=== PATIENT | female | born 1985 | race Caucasian/White ===

== ENCOUNTER 2020-04-17 15:03 | Emergency (ER) | payer MEDICAID ==
[2020-04-17 15:10] VITALS: BP 150/90
--- NOTE | 2020-04-17 15:38 | XRAY Report ---
PROCEDURE: Wrist 3 View LT INDICATIONS: wrist pain TECHNIQUE: 3 views of the wrist were acquired. COMPARISON: None. FINDINGS: Bones: No acute fractures or dislocations. No suspicious bony lesions. Soft tissues: No suspicious soft tissue calcifications. IMPRESSION: No acute osseous abnormality. If there is clinical concern or persistent symptoms, further evaluation with repeat radiographs or advanced imaging (e.g. CT, MRI) may be obtained for further evaluation. Reviewed by: Dennis Amado MD on 04/17/2020 3:37 PM [facility] Approved by: Dennis Amado MD on 04/17/2020 3:37 PM [facility] Station ID: [id number]
--- NOTE | 2020-04-17 16:46 | ED Physician Documentation ---
History of Present Illness - Stated complaint Stated Complaint: LT WRIST/ARM PX - Chief complaint Chief Complaint: Ext Problem - Additonal information Additional information: 34-year-old female presents the emergency department for evaluation of 3 weeks left wrist pain. She noted a mild swelling without erythema on the ulnar side about 3 weeks ago. She had no history of trauma. Review of Systems Constitutional: reports: Reviewed and negative Eyes: reports: Reviewed and negative Ears: reports: Reviewed and negative Cardiac: reports: Reviewed and negative Respiratory: reports: Reviewed and negative GI: reports: Reviewed and negative : reports: Reviewed and negative Musculoskeletal: reports: Joint pain (left wrist) PD PAST MEDICAL HISTORY - Past Medical History Past Medical History: No - Allergies Allergies/Adverse Reactions: Allergies Allergy/AdvReac Type Severity Reaction Status Date / Time No Known Drug Allergies Allergy Verified 04/17/20 15:07 - Social History Does the pt smoke?: No Smoking Status: Never smoker PD ED PE EXPANDED - Extremities Extremities: Left wrist (1 cm area of swelling without erythema but mild fluctuance noted palmar side of the wrist near ulna.) Results - Vitals Vitals: Vital Signs - 24 hr 04/17/20 15:07 Temperature 36.5 C Heart Rate 92 Respiratory 16 Rate Blood Pressure 150/90 H O2 Saturation 98 Oxygen O2 Source Room air - Rads (name of study) xray wrist left Radiology: Final report received (No fracture or dislocation.) PD MEDICAL DECISION MAKING - ED course Complexity details: reviewed results, re-evaluated patient, considered differential, d/w patient ED course: 34-year-old female presents emergency department for evaluation of 3 weeks left wrist pain. On exam she has a palpable fluid collection that is most suggestive of a ganglion cyst. However given the small size will defer drainage at this time. I have given the patient a wrist splint that I feel will help with pain in the long-term as minimizing movement may improve pain. We will also make a referral to orthopedics for follow-up. Findings not suggestive of abscess formation or cellulitis. Emergent return precautions discussed. Departure - Departure Disposition: 01 Home, Self Care Clinical Impression: Ganglion cyst of volar aspect of left wrist Condition: Stable Record reviewed to determine appropriate education?: Yes Instructions: ED Cyst Ganglion Follow-Up: [facility] [Provider Group] Comments: Vivi you have a ganglion cyst in your left wrist. Most of these will resolve without needing to be aspirated or drained. Minimizing movement of the wrist should help in the long-term. Please wear the wrist brace when out of bed. I do recommend gentle compression with an Usama bandage as well. I also recommend that you take ibuprofen 600 mg with food 4 times a day for pain. I have referred you to orthopedics for follow-up. Return to the emergency department if you have redness or fevers or concerns of infection in this cyst.
== END 2020-04-17 16:55 | disposition home or self-care (01) ==
LOC: ED 15:03
DX: M67.432 Ganglion, left wrist (principal)
CPT/HCPCS: 99281; 99283

== ENCOUNTER 2020-09-14 16:19 | Outpatient (CLI) | payer MEDICAID | END 2020-09-14 16:20 | disposition critical access hospital (66) | LOC: EMS 16:19 | DX: R50.9 Fever, unspecified (principal); R11.10 Vomiting, unspecified | CPT/HCPCS: A0425; A0429; A0999 ==

== ENCOUNTER 2020-09-14 16:43 | Inpatient (IN) | payer MEDICAID ==
[2020-09-14] MEDS ORDERED: KETOROLAC 15 MG/ML VIAL IM STA (18:37)
[2020-09-14] MEDS ORDERED: SODIUM CHLORIDE 0.9% 1,000 ML IV STA (18:37)
[2020-09-14] MEDS ORDERED: DEXAMETHASONE 10 MG/ML VIAL IVP STA (18:37)
[2020-09-14 18:55] LABS: EOSINOPHILS % (AUTO) 0.6 %; HCT - HEMATOCRIT 39.9 % (37.0-47.0); HGB - HEMOGLOBIN 13.1 g/dL (12.0-16.0); LYMPHOCYTES # (AUTO) 1.1 10^3/uL (1.5-3.5); LYMPHOCYTES % (AUTO) 29.7 %; MEAN CORPUSCULAR HEMOGLOBIN 28.7 pg (27.0-31.0); MEAN CORPUSCULAR HGB CONC 32.8 g/dL (32.0-36.0); MEAN CORPUSCULAR VOLUME 87.3 fL (81.0-99.0); MEAN PLATELET VOLUME 9.5 fL (7.9-10.8); MONOCYTES # (AUTO) 0.2 10^3/uL (0.0-1.0); MONOCYTES % (AUTO) 5.1 %; NEUTROPHILS # (AUTO) 2.3 10^3/uL (1.5-6.6); NEUTROPHILS % (AUTO) 64.3 %; PLT - PLATELET COUNT 161 10^3/uL (130-450); RED BLOOD COUNT 4.57 10^6/uL (4.20-5.40); RED CELL DISTRIBUTION WIDTH 13.9 % (12.0-15.0); WHITE BLOOD COUNT 3.5 x10^3/uL (4.8-10.8)
[2020-09-14 19:00] LABS: CALCIUM 8.5 mg/dL (8.5-10.3); CREATININE 0.9 mg/dL (0.4-1.0); POTASSIUM 3.8 mmol/L (3.5-5.0)
--- NOTE | 2020-09-14 20:25 | XRAY Report ---
PROCEDURE: Chest 1 View X-Ray INDICATIONS: dyspnea TECHNIQUE: One view of the chest was acquired. COMPARISON: None FINDINGS: Surgical changes and devices: None. Lungs and pleura: No pleural effusions or pneumothorax. Moderate right mid lung airspace opacity. Mediastinum: Mediastinal contours appear normal. Heart size is normal. Bones and chest wall: No suspicious bony lesions. Overlying soft tissues appear unremarkable. IMPRESSION: Right lung pneumonia. Follow-up PA and lateral chest x-rays or chest CT is recommended to ensure reso lution, and to exclude underlying neoplasm. Reviewed by: Isaak Bautista MD on 09/14/2020 8:23 PM PDT Approved by: Isaak Bautista MD on 09/14/2020 8:23 PM PDT Station ID: [id number]
--- NOTE | 2020-09-14 20:31 | ED Physician Documentation ---
PD HPI DYSPNEA - Stated complaint Stated Complaint: SOA C+ - Chief complaint Chief Complaint: Resp - History obtained from History obtained from: Patient, EMS - History of Present Illness Timing - onset: How many weeks ago (1) Timing - details: Gradual onset Pain level now: 4 (generalized myalgias) Improved by: O2, Rest Worsened by: Exertion Associated symptoms: Fever, Cough, Diaphoresis. No: Hemoptysis, Wheezing, Chest pain / discomfort, Bilateral edema, Unilateral edema Similar symptoms before: Diagnosis (COVID) - Additional information Additional information: BIBA. Patient is not COVID vaccinated. She developed generalized headache and generalized malaise 1 week ago and this led to outpatient COVID testing which returned (+). She developed fevers and dyspnea 4 days ago with gradually progressive dyspnea since yesterday and highest fever was this evening Tmax over 102 at home. She has no appetite with correlative decreased PO intake over past few days. EMS found patient to have pulse ox upper 80s on room air. Review of Systems Constitutional: reports: Fever, Myalgias, Fatigue, Sweats Eyes: reports: Reviewed and negative Ears: reports: Reviewed and negative Nose: reports: Reviewed and negative Throat: reports: Reviewed and negative Cardiac: reports: Reviewed and negative Respiratory: reports: Dyspnea, Cough. denies: Hemoptysis, Wheezing GI: denies: Abdominal Pain, Nausea, Vomiting, Constipation, Diarrhea : denies: Dysuria, Frequency Skin: reports: Reviewed and negative Musculoskeletal: denies: Extremity swelling Neurologic: reports: Generalized weakness, Headache. denies: Focal weakness, Numbness, Confused, Altered mental status PD PAST MEDICAL HISTORY - Past Medical History Past Medical History: No - Past Surgical History Past Surgical History: No - Allergies Allergies/Adverse Reactions: Allergies Allergy/AdvReac Type Severity Reaction Status Date / Time No Known Drug Allergies Allergy Verified 04/17/20 15:07 - Social History Does the pt smoke?: No Smoking Status: Never smoker Does the pt drink ETOH?: No Does the pt have substance abuse?: No - Immunizations Immunizations are current?: Yes - POLST Patient has POLST: No PD ED PE NORMAL - Vitals Vital signs reviewed: Yes - General General: Alert and oriented X 3, Other (diaphoretic) - HEENT HEENT: PERRL, EOMI, Other (tacky/pasty mucous membranes) - Neck Neck: Supple, no meningeal sign - Cardiac Cardiac: No murmur - Respiratory Respiratory: No respiratory distress - Abdomen Abdomen: Soft, Non tender - Back Back: No CVA TTP - Derm Derm: Normal color, No rash, Other (diaphoretic) - Extremities Extremities: No edema - Neuro Neuro: Alert and oriented X 3 PD ED PE EXPANDED - Cardiac Cardiac: Tachy - Respiratory Respiratory: Rhonchi (right mid/lower lung suazo) Results - Vitals Vitals: Vital Signs - 24 hr 09/14/20 09/14/20 09/14/20 17:23 19:05 21:00 Temperature 39.3 C H Heart Rate 108 H 108 H 100 Respiratory 30 H 22 24 Rate Blood Pressure 121/78 141/84 H 129/73 O2 Saturation 95 92 93 Oxygen O2 Source Nasal cannula Oxygen Flow Rate 4 - Labs Labs: Laboratory Tests 09/14/20 09/14/20 09/14/20 18:47 18:47 20:54 WBC 3.5 L RBC 4.57 Hgb 13.1 Hct 39.9 MCV 87.3 MCH 28.7 MCHC 32.8 RDW 13.9 Plt Count 161 MPV 9.5 Neut # (Auto) 2.3 Lymph # (Auto) 1.1 L [place] # (Auto) 0.2 Eos # (Auto) 0.0 Baso # (Auto) 0.0 Absolute Nucleated RBC 0.00 Nucleated RBC % 0.0 Sodium 134 L Potassium 3.8 Chloride 96 L Carbon Dioxide 24 Anion Gap 14.0 H BUN 10 Creatinine 0.9 Estimated GFR (MDRD) 71 L Glucose 150 H Lactic Acid 0.8 Calcium 8.5 - Rads (name of study) chest xray Radiology: Prelim report reviewed, See rad report PD MEDICAL DECISION MAKING - ED course Complexity details: reviewed results, re-evaluated patient, considered differential, d/w patient ED course: BIBA. Recent COVID positive (outpatient) testing, presents due to gradually worsening symptoms/signs (increasingly higher fevers, increasing dyspnea, poor appetite). She is hypoxic on room air, corrects to lower/mid 90s with 4 liters [place] oxygen. right sided infiltrate on CXR. D/W Dr. Jhaveri, will admit for COVID pneuomnia, hypoxia. Given antibiotics in ED to cover possible superimposed bacterial process. Departure - Departure Disposition: 66 [facility] DC/Xfer Clinical Impression: Pneumonia due to COVID-19 virus, Hypoxia Condition: Fair Discharge Date/Time: 09/14/20 22:39
[2020-09-14] MEDS ORDERED: cefTRIAXone 1 GM in SODIUM CHLORIDE 0.9% MINIBAG 100 ML IV STA (21:04)
[2020-09-14] MEDS ORDERED: AZITHROMYCIN INJ 500 MG in SODIUM CHLORIDE 0.9% 250 ML IV STA (21:04)
[2020-09-14] MEDS ORDERED: cefTRIAXone 1 GM VIAL ONE (21:16)
--- NOTE | 2020-09-14 21:40 | HISTORY & PHYSICAL EXAMINATION ---
Chief Complaint - Chief Complaint Chief Complaint: Shortness of breath. History of Present Illness - Admitted From Admitted From:: Home - History Obtained From Records Reviewed: Yes History obtained from: Patient, ER Physician, EMR - History of Present Illness HPI Comment/Other: This is a 34-year-old female with no significant past medical history who presents today complaining of worsening shortness of breath and fever. She states she started to have fevers on 10 September and she had associated headache, malaise, chills, diaphoresis. She was tested for Covid the following day and this came back positive. She states over the past 2 days she has felt short of breath and continues to have daily fevers. She has been taking Tylenol with minimal relief. She has had a nonproductive cough and occasional chest pain with this cough. She reports a bit of nasal congestion but no sore throat. She has had loss of smell and poor appetite but has been drinking plenty of fluids. She has no abdominal pain but has had some nausea and vomiting. She also reports diarrhea that began yesterday. She has only been having 1-2 bowel movements a day but they have been liquid without formed stool. She also states that she passed out twice over the past couple days. The first time was when she was vomiting and the second time was when she was having diarrhea. She is not sure if she hit her head or not. She is not vaccinated for COVID-19. She has a remote smoking history but quit over 9 years ago. In the emergency department, she was found to be febrile with temperature of 39.3 C. Her heart rate is 108. Blood pressure was 121/78. She was tachypneic with respiratory of 30. She was saturating 95% on 4 L of oxygen via nasal cannula. Labs revealed leukopenia with a normal lactic acid. Respiratory PCR panel was positive for SARSCoV2. Chest x-ray revealed right lower lobe infiltrate. Given the above findings, medicine was consulted for admission. History - Past Medical History Respiratory: reports: None Neuro: reports: None Endocrine/Autoimmune: reports: None MRSA Hx?: No - Past Surgical History General: reports: Cholecystectomy - Family & Social History Family History Comment/Other: She reports her mother from complications of diabetes. Her 2 brothers were recently diagnosed with diabetes. Living arrangement: At home Living Situation: With friend(s) Social History Notes: She lives at home with her close friend and her family. There are 9 people in the household. She moved to [facility] 1 year ago after previously living in [place] and in [place] prior to that. She smoked about 1/2 pack a day for 10 years on and off but quit in 2011. She rarely drinks alcohol. - POLST Patient has POLST: No Meds/Allgy - Allergies Allergies/Adverse Reactions: Allergies Allergy/AdvReac Type Severity Reaction Status Date / Time No Known Drug Allergies Allergy Verified 04/17/20 15:07 Review of Systems - Constitutional Constitutional: reports: Fatigue, Fever, Chills, Malaise, Weakness, Poor appetite, Night sweats - Ears, Nose & Throat Ears, Nose & Throat: reports: Nasal congestion. denies: Nasal discharge, Sore throat - Cardiovascular Cariovascular: reports: Chest pain (With cough), Syncope, Exertional dyspnea, Decr. exercise tolerance. denies: Edema, Lightheadedness - Respiratory Respiratory: reports: Cough, SOB at rest, SOB with exertion. denies: Sputum production - Gastrointestinal Gastrointestinal: reports: Diarrhea, Change in bowel habits, Nausea, Vomiting. denies: Abdominal pain, Constipation - Genitourinary Genitourinary: denies: Dysuria, Frequency, Urgency, Hematuria - Musculoskeletal Musculoskeletal: denies: Muscle pain, Limited range of motion - Integumentary Integumentary: denies: Rash - Neurological Neurological: reports: General weakness, Headache. denies: Focal weakness, Dizziness - All Other Systems All Other Systems: reports: Reviewed and negative Prior Level of Functionality: She is independent with her ADLs. Exam - Vital Signs Reviewed Vital Signs: Yes Vital Signs: Vital Signs x48h Temp Pulse Resp BP Pulse Ox 09/14/20 21:00 100 24 129/73 93 09/14/20 19:05 108 H 22 141/84 H 92 09/14/20 17:23 39.3 C H 108 H 30 H 121/78 95 - Physical Exam General Appearance: positive: Alert, Mild distress Eyes Bilateral: positive: Normal inspection, Conjunctivae nml ENT: positive: ENT inspection nml, Other (Nasal cannula in place.) Neck: positive: Nml inspection Respiratory: positive: No respiratory distress, Other (Diminished bilaterally.). negative: Wheezes, Rales Cardiovascular: positive: No murmur, Tachycardia. negative: Irregularly irregular, Bradycardia, Systolic murmur Abdomen: positive: Non-tender, Nml bowel sounds, No distention. negative: Tenderness, Guarding, Rebound Skin: positive: Warm, Dry Extremities: positive: No pedal edema Neurologic/Psychiatric: positive: Motor nml. negative: Disoriented to person, Disoriented to place Sepsis Event Note (H) - Evaluation Current Stage of Sepsis: Sepsis Possible source of Sepsis: positive: Pulmonary - Sepsis Criteria Sepsis Criteria: Recorded Temperature greater than 38.3C or Less than 36C, Recorded Heart Rate greater than 90 bpm, Recorded Respiratory Rate greater than 20, Respiratory: Increasing oxygen requirements, WBC count greater than 12,000 or less than 4000 Conclusion/Plan - Problem List (1) Acute respiratory failure with hypoxia Conclusion/Plan: This is secondary to COVID-19 pneumonia. She is requiring 4 L to maintain oxygen saturation of 94%. Her x-ray reveals a right lower lobe infiltrate. We will start her on Decadron and remdesivir. We will also place her on antibiotics for community-acquired pneumonia as her chest x-ray reveals a right lower lobe infiltrate which could potentially reflect a bacterial component to the infection. Monitor respiratory status and continue supplemental oxygen for goal saturation greater than 92%. (2) Sepsis Conclusion/Plan: She does meet sepsis criteria given her fever, leukopenia, tachycardia. This is likely due to the COVID-19 pneumonia although we cannot rule out a component of community-acquired bacterial pneumonia. Her lactic acid is normal. Blood cultures have been ordered and are pending. Continue IV antibiotics as mentioned below for pneumonia. Follow-up blood cultures. (3) Pneumonia due to COVID-19 virus Conclusion/Plan: This is the cause of her acute respiratory failure with hypoxia. She tested positive on September 09 and she is not vaccinated. She is now requiring 4 L of oxygen and her chest x-ray reveals a right lower lobe infiltrate. She received 10 mg of IV Decadron in the emergency department. We will continue her on 6 mg IV daily. We will start her on remdesivir tomorrow when pharmacy is available. We will also start her empirically on ceftriaxone and azithromycin IV given there could be a component of bacterial infection. Contact precautions. (4) Syncope Conclusion/Plan: This appears to be either vasovagal or due to dehydration based off of history. We will check orthostatics and obtain an EKG. She is also on telemetry. We will consider an echocardiogram although low suspicion for cardiac etiology at this time. - Lab Results Lab results reviewed: Yes Fish Bones: 09/14/20 18:47 09/14/20 18:47 - Diagnostic Imaging Results Diagnostic Imaging Results: positive: Final report reviewed Core Measures - Anticipated LOS I expect patient to be DC'd or transferred within 96 hours.: Yes - Issues Hospital Issues and Management Plan: 34-year-old female diagnosed with Covid a few days ago presents with dyspnea found to have a right lower lobe infiltrate and is hypoxic. We will admit for IV antibiotics, remdesivir, Decadron. - DVT/VTE - Prophylaxis VTE/DVT Device ordered at admit?: Yes VTE/DVT Prophylaxis med ordered at admit?: Yes
[2020-09-14 22:45] LABS: B. PARAPERTUSSIS- RESP PCR PAN NOT DETECTED; B. PERTUSSIS- RESP PCR PANEL NOT DETECTED; C. PNEUMONIAE- RESP PCR PANEL NOT DETECTED; CORONAVIRUS 229E-RESP PCR NOT DETECTED; CORONAVIRUS HKU1-RESP PCR NOT DETECTED; CORONAVIRUS NL63-RESP PCR NOT DETECTED; CORONAVIRUS OC43-RESP PCR NOT DETECTED; HUMAN METAPNEUMOVIRUS NOT DETECTED; INFLUENZA A- RESP PCR PANEL NOT DETECTED; INFLUENZA B - RESP PCR PANEL NOT DETECTED; M. PNEUMONIAE- RESP PCR PANEL NOT DETECTED; PARAINFLUENZA VIRUS 1 NOT DETECTED; PARAINFLUENZA VIRUS 2 NOT DETECTED; PARAINFLUENZA VIRUS 3 NOT DETECTED; PARAINFLUENZA VIRUS 4 NOT DETECTED; RHINOVIRUS/ENTEROVIRUS NOT DETECTED; RSV- RESP PCR PANEL NOT DETECTED; SARS-CoV-2 -RESP PCR PANEL DETECTED
[2020-09-14] MEDS: LACTATED RINGERS 1,000 ML IV SCH (22:56)
[2020-09-15] MEDS: KETOROLAC 15 MG/ML VIAL IVP PRN ×2 (01:11→12:47)
[2020-09-15] MEDS: SODIUM CHLORIDE FLUSH 0.9% 10 ML SYRINGE IVP SCH ×3 (02:29→17:42)
[2020-09-15] MEDS: BENZOCAINE/MENTHOL LOZENGE MM PRN (03:49)
[2020-09-15 04:17] LABS: BILIRUBIN,URINE NEGATIVE (NEGATIVE); GLUCOSE, URINE (UA) 500 mg/dL (NEGATIVE); KETONES,URINE (UA) >=80 mg/dL (NEGATIVE); LEUKOCYTE ESTERASE, URINE NEGATIVE (NEGATIVE); NITRITE,URINE NEGATIVE (NEGATIVE); OCCULT BLOOD,URINE NEGATIVE (NEGATIVE); PH,URINE 5.5 PH (5.0-7.5); PROTEIN,URINE NEGATIVE (NEGATIVE); UROBILINOGEN,URINE 0.2 (NORMAL) E.U./dL (NORMAL)
[2020-09-15 04:18] LABS: CLARITY,URINE CLEAR (CLEAR)
[2020-09-15 04:22] LABS: HCG UR QUAL NEGATIVE
[2020-09-15 06:07] LABS: HCT - HEMATOCRIT 36.8 % (37.0-47.0); HGB - HEMOGLOBIN 12.4 g/dL (12.0-16.0); LYMPHOCYTES # (AUTO) 0.9 10^3/uL (1.5-3.5); MEAN CORPUSCULAR HEMOGLOBIN 29.5 pg (27.0-31.0); MEAN CORPUSCULAR HGB CONC 33.7 g/dL (32.0-36.0); MEAN CORPUSCULAR VOLUME 87.4 fL (81.0-99.0); MEAN PLATELET VOLUME 9.6 fL (7.9-10.8); MONOCYTES # (AUTO) 0.2 10^3/uL (0.0-1.0); MONOCYTES % (AUTO) 4.3 %; NEUTROPHILS # (AUTO) 2.8 10^3/uL (1.5-6.6); NEUTROPHILS % (AUTO) 71.4 %; PLT - PLATELET COUNT 166 10^3/uL (130-450); RED BLOOD COUNT 4.21 10^6/uL (4.20-5.40); RED CELL DISTRIBUTION WIDTH 13.8 % (12.0-15.0); WHITE BLOOD COUNT 3.9 x10^3/uL (4.8-10.8)
[2020-09-15 06:22] LABS: ALBUMIN 3.6 g/dL (3.2-5.5); BILIRUBIN,DIRECT 0.1 mg/dL (0.1-0.5); BILIRUBIN,TOTAL 0.3 mg/dL (0.2-1.0); CREATININE 0.7 mg/dL (0.4-1.0); CRP - C-REACTIVE PROTEIN 2.4 mg/dL (0-1.0); MAGNESIUM 2.1 mg/dL (1.7-2.8); POTASSIUM 3.8 mmol/L (3.5-5.0); TOTAL PROTEIN 6.7 g/dL (6.7-8.2)
[2020-09-15] MEDS ORDERED: REMDESIVIR 100MG VIAL 200 MG in SODIUM CHLORIDE 0.9% 250 ML IV ONE (09:00)
[2020-09-15] MEDS: INSULIN ASPART 300 UNIT/3 ML PEN SUBQ SCH ×7 (09:01→21:43)
[2020-09-15] MEDS: ENOXAPARIN 40 MG/0.4 ML SYRINGE SUBQ SCH (09:02)
[2020-09-15] MEDS: DEXAMETHASONE 10 MG/ML VIAL IVP SCH (09:11)
[2020-09-15] MEDS: SODIUM CHLORIDE FLUSH 0.9% 10 ML SYRINGE IVP PRN ×2 (09:17→12:49)
[2020-09-15] MEDS: LACTATED RINGERS 1,000 ML IV SCH (09:18)
--- NOTE | 2020-09-15 11:42 | PROVIDER PROGRESS NOTE ---
Assessment/Plan - Problem List (1) Acute respiratory failure with hypoxia Assessment/Plan: 09/15 Patient had 92% sats on 4.5 L of oxygen. Patient is sitting in the chair, patient can speak full sentence without acute respiratory distress now. pt is stable now. will continue lovenox, Decadron and remdesivir. continue antibiotics at the same time, add probiotics (2) Sepsis pt has stable BP now. we will continue treat for Covid 19 and possible CAP pneumonia as well. Follow-up blood cultures. (3) Pneumonia due to COVID-19 virus Conclusion/Plan: pt report she did not do Vaccination for COVID-19. her chest x-ray reveals a right lower lobe infiltrate with COVID-19 positive, She required 4.5 oxygen. She has 92% of sats. We will continue treated COVID-19 with Lovenox, Decadron, remdesivir. Contact precautions. (4) Syncope pt has negative for Orthostatic hypotension. This appears to be either vasovagal or due to dehydration based off of history. We will check obtain an EKG. She is also on telemetry. We will consider an echocardiogram although low suspicion for cardiac etiology at this time if she continue to have problem (5)hyperglycemia Patient present hypoglycemia. She report couple years ago she was prediabetic. We will check A1c, continue sliding-scale insulin for patient. We will have diabetic consult for patient. - Current Meds Current Meds: Current Medications Generic Name Dose Route Start Last Admin Trade Name Freq PRN Reason Stop Dose Admin Dexamethasone 6 mg 09/15/20 09:00 09/15/20 09:11 Dexamethasone 10 Mg/Ml Vial IVP 09/24/20 08:59 6 mg DAILY ANDREIA Administration Enoxaparin Sodium 40 mg 09/15/20 09:00 09/15/20 09:02 Enoxaparin 40 Mg/0.4 Ml Syringe SUBQ 40 mg DAILY ANDREIA Administration Lactated Ringer's 1,000 mls @ 100 mls/hr 09/14/20 22:00 09/15/20 10:31 Lr IV 09/15/20 17:59 100 mls/hr .Q10H ANDREIA Infusion Insulin Aspart 1 - 9 unit 09/15/20 08:00 09/15/20 09:01 Insulin Aspart 300 Unit/3 Ml Pen SUBQ 5 unit 0800,1200,1700,2100 ANDREIA Administration Protocol Insulin Aspart 5 unit 09/15/20 08:23 09/15/20 09:01 Insulin Aspart 300 Unit/3 Ml Pen SUBQ 5 unit TIDWM ANDREIA Administration Ketorolac Tromethamine 15 mg 09/14/20 23:49 09/15/20 01:11 Ketorolac 15 Mg/Ml Vial IVP 09/19/20 23:48 15 mg Q6HR PRN Administration HEADACHE Sodium Chloride 10 ml 09/14/20 21:37 09/15/20 09:17 Sodium Chloride Flush 0.9% 10 Ml Syringe IVP 10 ml PRN PRN Administration NEEDED PER PROVIDER ORDERS Sodium Chloride 10 ml 09/15/20 01:00 09/15/20 09:02 Sodium Chloride Flush 0.9% 10 Ml Syringe IVP Not Given 0100,0900,1700 ANDREIA Throat Lozenges 1 lozenge 09/15/20 01:19 09/15/20 03:49 Benzocaine/Menthol Lozenge MM 1 lozenge Q2HR PRN Administration Throat pain - Lab Result Fish Bone Diagrams: 09/15/20 05:54 09/15/20 05:54 - Additional Planning My Orders: My Active Orders 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 Diabetes Outpatient Education MAC [MAC] Routine 09/15/20 08:23 Insulin Aspart [NovoLOG] 5 unit SUBQ TIDWM 09/15/20 08:24 Diabetic Education [RC] ONCE Subjective - Subjective Patient Reports: Feeling Better Objective Vital Signs: Vital Signs - 24 hr 09/14/20 09/14/20 09/14/20 17:23 19:05 21:00 Temperature 39.3 C H Heart Rate 108 H 108 H 100 Heart Rate [ Brachial] Respiratory 30 H 22 24 Rate Blood Pressure 121/78 141/84 H 129/73 Blood Pressure [Left Brachial artery] Blood Pressure [Right Brachial artery] O2 Saturation 95 92 93 09/14/20 09/14/20 09/15/20 21:41 22:46 01:00 Temperature 36.7 C 37.1 C 36.9 C Heart Rate Heart Rate [ 98 88 Brachial] Respiratory 22 22 Rate Blood Pressure Blood Pressure 118/74 [Left Brachial artery] Blood Pressure 102/69 [Right Brachial artery] O2 Saturation 94 91 L 09/15/20 09/15/20 03:58 08:00 Temperature 36.5 C 36.8 C Heart Rate Heart Rate [ 76 70 Brachial] Respiratory 18 18 Rate Blood Pressure Blood Pressure [Left Brachial artery] Blood Pressure 100/60 [Right Brachial artery] O2 Saturation 92 92 Oxygen O2 Source Nasal cannula Oxygen Flow Rate 4 I&O (Last 24 Hrs): Intake and Output Totals x24h 09/13/20 09/14/20 09/15/20 23:59 23:59 23:59 Intake Total 1350 1250.000 Balance 1350 1250.000 General: Alert, Oriented x3, Cooperative, No acute distress HEENT: Atraumatic Neck: Supple Lymphatic: no adenopathy Neuro: Alert, Non Focal, Oriented Times 3 Cardiovascular: Regular rate, Normal S1, Normal S2 Respiratory: Chest non-tender, No respiratory distress Abdomen: Normal bowel sounds, Soft, No tenderness Extremities: Normal pulses - Results Results: Laboratory Results WBC 3.9 x10^3/uL (4.8-10.8) L 09/15/20 05:54 RBC 4.21 10^6/uL (4.20-5.40) 09/15/20 05:54 Hgb 12.4 g/dL (12.0-16.0) 09/15/20 05:54 Hct 36.8 % (37.0-47.0) L 09/15/20 05:54 MCV 87.4 fL (81.0-99.0) 09/15/20 05:54 MCH 29.5 pg (27.0-31.0) 09/15/20 05:54 MCHC 33.7 g/dL (32.0-36.0) 09/15/20 05:54 RDW 13.8 % (12.0-15.0) 09/15/20 05:54 Plt Count 166 10^3/uL (130-450) 09/15/20 05:54 MPV 9.6 fL (7.9-10.8) 09/15/20 05:54 Neut # (Auto) 2.8 10^3/uL (1.5-6.6) 09/15/20 05:54 Lymph # (Auto) 0.9 10^3/uL (1.5-3.5) L 09/15/20 05:54 Mclean # (Auto) 0.2 10^3/uL (0.0-1.0) 09/15/20 05:54 Eos # (Auto) 0.0 10^3/uL (0.0-0.7) 09/15/20 05:54 Baso # (Auto) 0.0 10^3/uL (0.0-0.1) 09/15/20 05:54 Absolute Nucleated RBC 0.00 x10^3/uL 09/15/20 05:54 Nucleated RBC % 0.0 /100WBC 09/15/20 05:54 Sodium 136 mmol/L (135-145) 09/15/20 05:54 Potassium 3.8 mmol/L (3.5-5.0) 09/15/20 05:54 Chloride 104 mmol/L (101-111) 09/15/20 05:54 Carbon Dioxide 24 mmol/L (21-32) 09/15/20 05:54 Anion Gap 8.0 (6-13) 09/15/20 05:54 BUN 15 mg/dL (6-20) 09/15/20 05:54 Creatinine 0.7 mg/dL (0.4-1.0) 09/15/20 05:54 Estimated GFR (MDRD) 95 (>89) 09/15/20 05:54 Glucose 296 mg/dL (70-100) H 09/15/20 05:54 Lactic Acid 0.8 mmol/L (0.5-2.2) 09/14/20 20:54 Calcium 8.0 mg/dL (8.5-10.3) L 09/15/20 05:54 Magnesium 2.1 mg/dL (1.7-2.8) 09/15/20 05:54 Total Bilirubin 0.3 mg/dL (0.2-1.0) 09/15/20 05:54 Direct Bilirubin 0.1 mg/dL (0.1-0.5) 09/15/20 05:54 AST 30 IU/L (10-42) 09/15/20 05:54 ALT 36 IU/L (10-60) 09/15/20 05:54 Alkaline Phosphatase 41 IU/L (42-121) L 09/15/20 05:54 C-Reactive Protein 2.4 mg/dL (0-1.0) H 09/15/20 05:54 Total Protein 6.7 g/dL (6.7-8.2) 09/15/20 05:54 Albumin 3.6 g/dL (3.2-5.5) 09/15/20 05:54 Globulin 3.1 g/dL (2.1-4.2) 09/15/20 05:54 Urine Color YELLOW 09/15/20 03:50 Urine Clarity CLEAR (CLEAR) 09/15/20 03:50 Urine pH 5.5 PH (5.0-7.5) 09/15/20 03:50 Ur Specific [place] 1.025 (1.002-1.030) 09/15/20 03:50 Urine Protein NEGATIVE mg/dL (NEGATIVE) 09/15/20 03:50 Urine Glucose (UA) 500 mg/dL (NEGATIVE) H 09/15/20 03:50 Urine Ketones >=80 mg/dL (NEGATIVE) H 09/15/20 03:50 Urine Occult Blood NEGATIVE (NEGATIVE) 09/15/20 03:50 Urine Nitrite NEGATIVE (NEGATIVE) 09/15/20 03:50 Urine Bilirubin NEGATIVE (NEGATIVE) 09/15/20 03:50 Urine Urobilinogen 0.2 (NORMAL) E.U./dL (NORMAL) 09/15/20 03:50 Ur Leukocyte Esterase NEGATIVE (NEGATIVE) 09/15/20 03:50 Ur Microscopic Review NOT INDICATED 09/15/20 03:50 Urine Culture Comments NOT INDICATED 09/15/20 03:50 Urine HCG, Qual NEGATIVE 09/15/20 03:50 Nasal Adenovirus (PCR) NOT DETECTED 09/14/20 21:50 Nasal B. parapertussis DNA (PCR) NOT DETECTED 09/14/20 21:50 Nasal Coronavir 229E PCR NOT DETECTED 09/14/20 21:50 Nasal Coronavir HKU1 PCR NOT DETECTED 09/14/20 21:50 Nasal Coronavir NL63 PCR NOT DETECTED 09/14/20 21:50 Nasal Coronavir OC43 PCR NOT DETECTED 09/14/20 21:50 Nasal Enterovir/Rhinovir PCR NOT DETECTED 09/14/20 21:50 Nasal Influenza B PCR NOT DETECTED 09/14/20 21:50 Nasal Influenza A PCR NOT DETECTED 09/14/20 21:50 Nasal Parainfluen 1 PCR NOT DETECTED 09/14/20 21:50 Nasal Parainfluen 2 PCR NOT DETECTED 09/14/20 21:50 Nasal Parainfluen 3 PCR NOT DETECTED 09/14/20 21:50 Nasal Parainfluen 4 PCR NOT DETECTED 09/14/20 21:50 Nasal RSV (PCR) NOT DETECTED 09/14/20 21:50 Nasal B.pertussis DNA PCR NOT DETECTED 09/14/20 21:50 Nasal C.pneumoniae (PCR) NOT DETECTED 09/14/20 21:50 Brian Human Metapneumo PCR NOT DETECTED 09/14/20 21:50 Nasal M.pneumoniae (PCR) NOT DETECTED 09/14/20 21:50 Nasal SARS-CoV-2 (PCR) DETECTED A 09/14/20 21:50 Sepsis Event Note (H) - Evaluation Current Stage of Sepsis: Sepsis Possible source of Sepsis: positive: Pulmonary - Sepsis Criteria Sepsis Criteria: Recorded Temperature greater than 38.3C or Less than 36C, Recorded Heart Rate greater than 90 bpm, Recorded Respiratory Rate greater than 20, Respiratory: Increasing oxygen requirements, WBC count greater than 12,000 or less than 4000 ABX Reporting Has patient been on IV antibiotics over the past 48 hours?: Yes Current Medications - Current Medications Current Medications: Active Medications Acetaminophen (Acetaminophen 325 Mg Tablet) 650 mg PO Q4HR PRN PRN Reason: Pain 1 to 4 Dexamethasone (Dexamethasone 10 Mg/Ml Vial) 6 mg IVP DAILY [facility] Stop: 09/24/20 08:59 Last Admin: 09/15/20 09:11 Dose: 6 mg Documented by: Enoxaparin Sodium (Enoxaparin 40 Mg/0.4 Ml Syringe) 40 mg SUBQ DAILY [facility] Last Admin: 09/15/20 09:02 Dose: 40 mg Documented by: Lactated Ringer's (Lr) 1,000 mls @ 100 mls/hr IV .Q10H ANDREIA Stop: 09/15/20 17:59 Last Infusion: 09/15/20 10:31 Dose: 100 mls/hr Documented by: Azithromycin 500 mg/ Sodium (Chloride) 250 mls @ 250 mls/hr IV HS ANDREIA Stop: 09/16/20 21:59 Ceftriaxone Sodium 1 gm/ (Sodium Chloride) 100 mls @ 200 mls/hr IV HS [facility] Stop: 09/18/20 21:29 Remdesivir 100 mg/ Sodium (Chloride) 100 mls @ 200 mls/hr IV DAILY ANDREIA Stop: 09/19/20 09:29 Insulin Aspart (Insulin Aspart 300 Unit/3 Ml Pen) 1 - 9 unit SUBQ 0800,1200,1700,2100 [facility]; Protocol Last Admin: 09/15/20 09:01 Dose: 5 unit Documented by: Insulin Aspart (Insulin Aspart 300 Unit/3 Ml Pen) 5 unit SUBQ TIDWM [facility] Last Admin: 09/15/20 09:01 Dose: 5 unit Documented by: Insulin Glargine (Insulin Glargine 300 Unit/3 Ml Pen) 10 unit SUBQ QPM [facility] Ketorolac Tromethamine (Ketorolac 15 Mg/Ml Vial) 15 mg IVP Q6HR PRN PRN Reason: HEADACHE Stop: 09/19/20 23:48 Last Admin: 09/15/20 01:11 Dose: 15 mg Documented by: Ondansetron HCl (Ondansetron 4 Mg/2 Ml Vial) 4 mg IVP Q6HR PRN PRN Reason: Nausea / Vomiting Saccharomyces Boulardii (Saccharomyces Boulardii 250 Mg Capsule) 250 mg PO BIDWM [facility] Sodium Chloride (Sodium Chloride Flush 0.9% 10 Ml Syringe) 10 ml IVP PRN PRN PRN Reason: NEEDED PER PROVIDER ORDERS Last Admin: 09/15/20 09:17 Dose: 10 ml Documented by: Sodium Chloride (Sodium Chloride Flush 0.9% 10 Ml Syringe) 10 ml IVP 0100,0900,1700 [facility] Last Admin: 09/15/20 09:02 Dose: Not Given Documented by: Throat Lozenges (Benzocaine/Menthol Lozenge) 1 lozenge MM Q2HR PRN PRN Reason: Throat pain Last Admin: 09/15/20 03:49 Dose: 1 lozenge Documented by:
[2020-09-15 14:24] LABS: ESTIMATED AVERAGE GLUCOSE 174 mg/dL (70-100); HEMOGLOBIN A1c% 7.7 % (4.27-6.07)
[2020-09-15] MEDS: ACETAMINOPHEN 325 MG TABLET PO PRN (17:41)
[2020-09-15] MEDS: SACCHAROMYCES BOULARDII 250 MG CAPSULE PO SCH (17:42)
[2020-09-15] MEDS: CALCIUM CARBONATE CHEW 500 MG TABLET PO PRN (20:28)
[2020-09-15] MEDS: ONDANSETRON 4 MG/2 ML VIAL IVP PRN (20:28)
[2020-09-15] MEDS: cefTRIAXone 1 GM in SODIUM CHLORIDE 0.9% MINIBAG 100 ML IV SCH (21:42)
[2020-09-15] MEDS: INSULIN GLARGINE 300 UNIT/3 ML PEN SUBQ SCH (21:43)
[2020-09-15] MEDS: AZITHROMYCIN INJ 500 MG in SODIUM CHLORIDE 0.9% 250 ML IV SCH (22:38)
[2020-09-16] MEDS: KETOROLAC 15 MG/ML VIAL IVP PRN (00:17)
[2020-09-16] MEDS: SODIUM CHLORIDE FLUSH 0.9% 10 ML SYRINGE IVP SCH ×3 (00:18→17:16)
[2020-09-16] MEDS: CALCIUM CARBONATE CHEW 500 MG TABLET PO PRN (00:27)
[2020-09-16] MEDS: BENZOCAINE/MENTHOL LOZENGE MM PRN (00:27)
[2020-09-16] MEDS: ZOLPIDEM 5 MG TABLET PO PRN (00:27)
[2020-09-16 05:39] LABS: BASOPHILS % (AUTO) 0.2 %; EOSINOPHILS % (AUTO) 0.2 %; HGB - HEMOGLOBIN 11.3 g/dL (12.0-16.0); LYMPHOCYTES # (AUTO) 1.2 10^3/uL (1.5-3.5); LYMPHOCYTES % (AUTO) 19.9 %; MEAN CORPUSCULAR HEMOGLOBIN 28.7 pg (27.0-31.0); MEAN CORPUSCULAR HGB CONC 32.3 g/dL (32.0-36.0); MEAN CORPUSCULAR VOLUME 88.8 fL (81.0-99.0); MEAN PLATELET VOLUME 9.8 fL (7.9-10.8); MONOCYTES # (AUTO) 0.3 10^3/uL (0.0-1.0); MONOCYTES % (AUTO) 4.2 %; NEUTROPHILS # (AUTO) 4.7 10^3/uL (1.5-6.6); NEUTROPHILS % (AUTO) 75.2 %; PLT - PLATELET COUNT 181 10^3/uL (130-450); RED BLOOD COUNT 3.94 10^6/uL (4.20-5.40); RED CELL DISTRIBUTION WIDTH 14.2 % (12.0-15.0); WHITE BLOOD COUNT 6.2 x10^3/uL (4.8-10.8)
[2020-09-16 05:50] LABS: ALBUMIN 3.4 g/dL (3.2-5.5); BILIRUBIN,DIRECT 0.1 mg/dL (0.1-0.5); BILIRUBIN,TOTAL 0.5 mg/dL (0.2-1.0); CALCIUM 8.3 mg/dL (8.5-10.3); CREATININE 0.9 mg/dL (0.4-1.0); CRP - C-REACTIVE PROTEIN 1.2 mg/dL (0-1.0); MAGNESIUM 1.9 mg/dL (1.7-2.8); POTASSIUM 3.5 mmol/L (3.5-5.0); TOTAL PROTEIN 6.5 g/dL (6.7-8.2)
[2020-09-16] MEDS: INSULIN ASPART 300 UNIT/3 ML PEN SUBQ SCH ×7 (08:07→21:22)
[2020-09-16] MEDS: DEXAMETHASONE 10 MG/ML VIAL IVP SCH (09:11)
[2020-09-16] MEDS: ENOXAPARIN 40 MG/0.4 ML SYRINGE SUBQ SCH (09:13)
[2020-09-16] MEDS ORDERED: GI COCKTAIL 120 ML BOTTLE PO PRN (09:17)
[2020-09-16] MEDS ORDERED: LORazepam 0.5 MG TABLET PO PRN (09:29)
[2020-09-16] MEDS: ONDANSETRON 4 MG/2 ML VIAL IVP PRN (10:15)
[2020-09-16] MEDS: ACETAMINOPHEN 325 MG TABLET PO PRN (10:15)
[2020-09-16] MEDS: SACCHAROMYCES BOULARDII 250 MG CAPSULE PO SCH ×2 (10:15→17:16)
[2020-09-16] MEDS: PANTOPRAZOLE 40 MG TABLET PO SCH (10:20)
[2020-09-16] MEDS: REMDESIVIR 100MG VIAL 100 MG in SODIUM CHLORIDE 0.9% 100ML 100 ML IV SCH (10:22)
--- NOTE | 2020-09-16 16:16 | PROVIDER PROGRESS NOTE ---
Assessment/Plan - Problem List (1) Acute respiratory failure with hypoxia Assessment/Plan: 09/16 Patient had low degree fever, also she required more oxygen. now patient had 93% sats with 7 L oxygen. Patient condition is slightly worsening. We will continue COVID-19 treatment, continue antibiotics, continue probiotics, continue supplemental oxygen for patient as needed. 09/15 Patient had 92% sats on 4.5 L of oxygen. Patient is sitting in the chair, patient can speak full sentence without acute respiratory distress now. pt is stable now. will continue lovenox, Decadron and remdesivir. continue antibiotics at the same time, add probiotics (2) Sepsis 09/16 Blood culture show negative for bacteremia. Patient had low degree fever on today, patient required more oxygen. We will continue treated COVID-19 and Pneumonia as well, Continue intravenous IV fluids pt has stable BP now. we will continue treat for Covid 19 and possible CAP pneumonia as well. Follow-up blood cultures. (3) Pneumonia due to COVID-19 virus Conclusion/Plan: pt report she did not do Vaccination for COVID-19. her chest x-ray reveals a right lower lobe infiltrate with COVID-19 positive, She required 4.5 oxygen. She has 92% of sats. We will continue treated COVID-19 with Lovenox, Decadron, remdesivir. Contact precautions. (4) Syncope pt has negative for Orthostatic hypotension. This appears to be either vasovagal or due to dehydration based off of history. We will check obtain an EKG. She is also on telemetry. We will consider an echocardiogram although low suspicion for cardiac etiology at this time if she continue to have problem (5)diabetes 09/16 Patient had A1c 7.7. Patient is on steroid Which could affect her glucose level. We will continue sliding-scale. Patient present hypoglycemia. She report couple years ago she was prediabetic. We will check A1c, continue sliding-scale insulin for patient. We will have diabetic consult for patient. (6)GERD Patient report burning sensation in upper GI. After patient was give GI cocktail, Protonix, patient feel better. Troponin test is negative for ischemia - Current Meds Current Meds: Current Medications Generic Name Dose Route Start Last Admin Trade Name Freq PRN Reason Stop Dose Admin Acetaminophen 650 mg 09/14/20 21:37 09/16/20 10:15 Acetaminophen 325 Mg Tablet PO 650 mg Q4HR PRN Administration Pain 1 to 4 Calcium Carbonate/Glycine 500 mg 09/15/20 20:03 09/16/20 00:27 Calcium Carbonate Chew 500 Mg Tablet PO 500 mg TID PRN Administration Heartburn Dexamethasone 6 mg 09/15/20 09:00 09/16/20 09:11 Dexamethasone 10 Mg/Ml Vial IVP 09/24/20 08:59 6 mg DAILY ANDREIA Administration Enoxaparin Sodium 40 mg 09/15/20 09:00 09/16/20 09:13 Enoxaparin 40 Mg/0.4 Ml Syringe SUBQ 40 mg DAILY ANDREIA Administration Azithromycin 500 mg/ Sodium 250 mls @ 250 mls/hr 09/15/20 21:00 09/15/20 23:40 Chloride IV 09/16/20 21:59 Infused HS ANDREIA Infusion Ceftriaxone Sodium 1 gm/ 100 mls @ 200 mls/hr 09/15/20 21:00 09/15/20 22:38 Sodium Chloride IV 09/18/20 21:29 Infused HS ANDREIA Infusion Remdesivir 100 mg/ Sodium 100 mls @ 200 mls/hr 09/16/20 09:00 09/16/20 10:55 Chloride IV 09/19/20 09:29 Infused DAILY ANDREIA Infusion Insulin Aspart 1 - 9 unit 09/15/20 08:00 09/16/20 12:38 Insulin Aspart 300 Unit/3 Ml Pen SUBQ 3 unit 0800,1200,1700,2100 ANDREIA Administration Protocol Insulin Aspart 5 unit 09/15/20 08:23 09/16/20 12:39 Insulin Aspart 300 Unit/3 Ml Pen SUBQ 5 unit TIDWM ANDREIA Administration Insulin Glargine 10 unit 09/15/20 21:00 09/15/20 21:43 Insulin Glargine 300 Unit/3 Ml Pen SUBQ 10 unit QPM ANDREIA Administration Ketorolac Tromethamine 15 mg 09/14/20 23:49 09/16/20 00:17 Ketorolac 15 Mg/Ml Vial IVP 09/19/20 23:48 15 mg Q6HR PRN Administration HEADACHE Multi-Ingredient Mouthwash/Gargle 30 ml 09/16/20 09:17 09/16/20 10:17 Gi Cocktail 120 Ml Bottle PO 30 ml Q4H PRN Administration Abdominal Pain Ondansetron HCl 4 mg 09/14/20 21:37 09/16/20 10:15 Ondansetron 4 Mg/2 Ml Vial IVP 4 mg Q6HR PRN Administration Nausea / Vomiting Pantoprazole Sodium 40 mg 09/16/20 09:18 09/16/20 10:20 Pantoprazole 40 Mg Tablet PO 40 mg QDAC ANDREIA Administration Saccharomyces Boulardii 250 mg 09/15/20 17:00 09/16/20 10:15 Saccharomyces Boulardii 250 Mg Capsule PO 250 mg BIDWM ANDREIA Administration Sodium Chloride 10 ml 09/14/20 21:37 09/15/20 12:49 Sodium Chloride Flush 0.9% 10 Ml Syringe IVP 10 ml PRN PRN Administration NEEDED PER PROVIDER ORDERS Sodium Chloride 10 ml 09/15/20 01:00 09/16/20 09:12 Sodium Chloride Flush 0.9% 10 Ml Syringe IVP 10 ml 0100,0900,1700 ANDREIA Administration Throat Lozenges 1 lozenge 09/15/20 01:19 09/16/20 00:27 Benzocaine/Menthol Lozenge MM 1 lozenge Q2HR PRN Administration Throat pain Zolpidem Tartrate 5 mg 09/15/20 20:04 09/16/20 00:27 Zolpidem 5 Mg Tablet PO 5 mg QPM PRN Administration Insomnia - Lab Result Fish Bone Diagrams: 09/16/20 05:10 09/16/20 05:10 - Additional Planning My Orders: My Active Orders 09/15/20 17:00 Saccharomyces Boulardii [Florastor] 250 mg PO BIDWM 09/16/20 09:17 Incentive Spirometry - RT [RC] TID Gi Cocktail 30 ml PO Q4H PRN 09/16/20 09:18 Pantoprazole [Protonix] 40 mg PO QDAC 09/16/20 09:27 Miscellaenous Nursing Order [RC] PRN 09/16/20 09:29 LORazepam [Ativan] 0.25 mg PO Q8H PRN Subjective - Subjective Patient Reports: Fever Objective Vital Signs: Vital Signs - 24 hr 09/15/20 09/15/20 09/15/20 16:36 20:40 23:54 Temperature 36.7 C 36.9 C 37.4 C Heart Rate [ 84 76 90 Brachial] Respiratory 18 18 20 Rate Blood Pressure [Left Brachial artery] Blood Pressure 106/70 105/65 102/65 [Right Brachial artery] O2 Saturation 93 94 94 09/16/20 09/16/20 09/16/20 08:02 09:10 11:46 Temperature 38.3 C H 38.3 C H 37.3 C Heart Rate [ 85 85 Brachial] Respiratory 20 19 19 Rate Blood Pressure 113/65 [Left Brachial artery] Blood Pressure 106/65 [Right Brachial artery] O2 Saturation 92 92 93 Oxygen O2 Source Oxymizer Oxygen Flow Rate 4 I&O (Last 24 Hrs): Intake and Output Totals x24h 09/14/20 09/15/20 09/16/20 23:59 23:59 23:59 Intake Total 1350 3790.000 1080 Balance 1350 3790.000 1080 General: Alert, Oriented x3, Cooperative, Mild distress HEENT: Atraumatic Neck: Supple Lymphatic: no adenopathy Neuro: Alert, Non Focal, Oriented Times 3 Cardiovascular: Regular rate, Normal S1, Normal S2 Respiratory: Chest non-tender, Other (Mild respiratory distress) Abdomen: Normal bowel sounds, Soft, No tenderness Extremities: Normal pulses - Results Results: Laboratory Results WBC 6.2 x10^3/uL (4.8-10.8) 09/16/20 05:10 RBC 3.94 10^6/uL (4.20-5.40) L 09/16/20 05:10 Hgb 11.3 g/dL (12.0-16.0) L 09/16/20 05:10 Hct 35.0 % (37.0-47.0) L 09/16/20 05:10 MCV 88.8 fL (81.0-99.0) 09/16/20 05:10 MCH 28.7 pg (27.0-31.0) 09/16/20 05:10 MCHC 32.3 g/dL (32.0-36.0) 09/16/20 05:10 RDW 14.2 % (12.0-15.0) 09/16/20 05:10 Plt Count 181 10^3/uL (130-450) 09/16/20 05:10 MPV 9.8 fL (7.9-10.8) 09/16/20 05:10 Neut # (Auto) 4.7 10^3/uL (1.5-6.6) 09/16/20 05:10 Lymph # (Auto) 1.2 10^3/uL (1.5-3.5) L 09/16/20 05:10 [place] # (Auto) 0.3 10^3/uL (0.0-1.0) 09/16/20 05:10 Eos # (Auto) 0.0 10^3/uL (0.0-0.7) 09/16/20 05:10 Baso # (Auto) 0.0 10^3/uL (0.0-0.1) 09/16/20 05:10 Absolute Nucleated RBC 0.00 x10^3/uL 09/16/20 05:10 Nucleated RBC % 0.0 /100WBC 09/16/20 05:10 Sodium 138 mmol/L (135-145) 09/16/20 05:10 Potassium 3.5 mmol/L (3.5-5.0) 09/16/20 05:10 Chloride 103 mmol/L (101-111) 09/16/20 05:10 Carbon Dioxide 26 mmol/L (21-32) 09/16/20 05:10 Anion Gap 9.0 (6-13) 09/16/20 05:10 BUN 14 mg/dL (6-20) 09/16/20 05:10 Creatinine 0.9 mg/dL (0.4-1.0) 09/16/20 05:10 Estimated GFR (MDRD) 71 (>89) L 09/16/20 05:10 Glucose 135 mg/dL (70-100) H 09/16/20 05:10 POC Whole Bld Glucose 274 mg/dL (70 - 100) H 09/16/20 16:07 Estimat Average Glucose 174 mg/dL (70-100) H 09/15/20 05:54 Hemoglobin A1c % 7.7 % (4.27-6.07) H 09/15/20 05:54 Lactic Acid 0.8 mmol/L (0.5-2.2) 09/14/20 20:54 Calcium 8.3 mg/dL (8.5-10.3) L 09/16/20 05:10 Magnesium 1.9 mg/dL (1.7-2.8) 09/16/20 05:10 Total Bilirubin 0.5 mg/dL (0.2-1.0) 09/16/20 05:10 Direct Bilirubin 0.1 mg/dL (0.1-0.5) 09/16/20 05:10 AST 26 IU/L (10-42) 09/16/20 05:10 ALT 29 IU/L (10-60) 09/16/20 05:10 Alkaline Phosphatase 37 IU/L (42-121) L 09/16/20 05:10 Troponin I High Sens 4.7 ng/L (2.3-14.8) 09/16/20 09:47 C-Reactive Protein 1.2 mg/dL (0-1.0) H 09/16/20 05:10 Total Protein 6.5 g/dL (6.7-8.2) L 09/16/20 05:10 Albumin 3.4 g/dL (3.2-5.5) 09/16/20 05:10 Globulin 3.1 g/dL (2.1-4.2) 09/16/20 05:10 Urine Color YELLOW 09/15/20 03:50 Urine Clarity CLEAR (CLEAR) 09/15/20 03:50 Urine pH 5.5 PH (5.0-7.5) 09/15/20 03:50 Ur Specific [place] 1.025 (1.002-1.030) 09/15/20 03:50 Urine Protein NEGATIVE mg/dL (NEGATIVE) 09/15/20 03:50 Urine Glucose (UA) 500 mg/dL (NEGATIVE) H 09/15/20 03:50 Urine Ketones >=80 mg/dL (NEGATIVE) H 09/15/20 03:50 Urine Occult Blood NEGATIVE (NEGATIVE) 09/15/20 03:50 Urine Nitrite NEGATIVE (NEGATIVE) 09/15/20 03:50 Urine Bilirubin NEGATIVE (NEGATIVE) 09/15/20 03:50 Urine Urobilinogen 0.2 (NORMAL) E.U./dL (NORMAL) 09/15/20 03:50 Ur Leukocyte Esterase NEGATIVE (NEGATIVE) 09/15/20 03:50 Ur Microscopic Review NOT INDICATED 09/15/20 03:50 Urine Culture Comments NOT INDICATED 09/15/20 03:50 Urine HCG, Qual NEGATIVE 09/15/20 03:50 Nasal Adenovirus (PCR) NOT DETECTED 09/14/20 21:50 Nasal B. parapertussis DNA (PCR) NOT DETECTED 09/14/20 21:50 Nasal Coronavir 229E PCR NOT DETECTED 09/14/20 21:50 Nasal Coronavir HKU1 PCR NOT DETECTED 09/14/20 21:50 Nasal Coronavir NL63 PCR NOT DETECTED 09/14/20 21:50 Nasal Coronavir OC43 PCR NOT DETECTED 09/14/20 21:50 Nasal Enterovir/Rhinovir PCR NOT DETECTED 09/14/20 21:50 Nasal Influenza B PCR NOT DETECTED 09/14/20 21:50 Nasal Influenza A PCR NOT DETECTED 09/14/20 21:50 Nasal Parainfluen 1 PCR NOT DETECTED 09/14/20 21:50 Nasal Parainfluen 2 PCR NOT DETECTED 09/14/20 21:50 Nasal Parainfluen 3 PCR NOT DETECTED 09/14/20 21:50 Nasal Parainfluen 4 PCR NOT DETECTED 09/14/20 21:50 Nasal RSV (PCR) NOT DETECTED 09/14/20 21:50 Nasal B.pertussis DNA PCR NOT DETECTED 09/14/20 21:50 Nasal C.pneumoniae (PCR) NOT DETECTED 09/14/20 21:50 Brian Human Metapneumo PCR NOT DETECTED 09/14/20 21:50 Nasal M.pneumoniae (PCR) NOT DETECTED 09/14/20 21:50 Nasal SARS-CoV-2 (PCR) DETECTED A 09/14/20 21:50 Sepsis Event Note (H) - Evaluation Current Stage of Sepsis: Sepsis Possible source of Sepsis: positive: Pulmonary - Sepsis Criteria Sepsis Criteria: Recorded Temperature greater than 38.3C or Less than 36C, Recorded Heart Rate greater than 90 bpm, Recorded Respiratory Rate greater than 20, Respiratory: Increasing oxygen requirements, WBC count greater than 12,000 or less than 4000 ABX Reporting Has patient been on IV antibiotics over the past 48 hours?: Yes Current Medications - Current Medications Current Medications: Active Medications Acetaminophen (Acetaminophen 325 Mg Tablet) 650 mg PO Q4HR PRN PRN Reason: Pain 1 to 4 Last Admin: 09/16/20 10:15 Dose: 650 mg Documented by: Calcium Carbonate/Glycine (Calcium Carbonate Chew 500 Mg Tablet) 500 mg PO TID PRN PRN Reason: Heartburn Last Admin: 09/16/20 00:27 Dose: 500 mg Documented by: Dexamethasone (Dexamethasone 10 Mg/Ml Vial) 6 mg IVP DAILY ANDREIA Stop: 09/24/20 08:59 Last Admin: 09/16/20 09:11 Dose: 6 mg Documented by: Enoxaparin Sodium (Enoxaparin 40 Mg/0.4 Ml Syringe) 40 mg SUBQ DAILY [facility] [place] Last Admin: 09/16/20 09:13 Dose: 40 mg Documented by: Azithromycin 500 mg/ Sodium (Chloride) 250 mls @ 250 mls/hr IV [facility] Stop: 09/16/20 21:59 Last Infusion: 09/15/20 23:40 Dose: Infused Documented by: Ceftriaxone Sodium 1 gm/ (Sodium Chloride) 100 mls @ 200 mls/hr IV [facility] Stop: 09/18/20 21:29 Last Infusion: 09/15/20 22:38 Dose: Infused Documented by: Remdesivir 100 mg/ Sodium (Chloride) 100 mls @ 200 mls/hr IV DAILY [facility] [place] Stop: 09/19/20 09:29 Last Infusion: 09/16/20 10:55 Dose: Infused Documented by: Sodium Chloride (Normal Saline 0.9%) 1,000 mls @ 100 mls/hr IV .Q10H [facility] [place] Stop: 09/17/20 12:59 Insulin Aspart (Insulin Aspart 300 Unit/3 Ml Pen) 1 - 9 unit SUBQ 0800,1200,1700,2100 [facility] [place]; Protocol Last Admin: 09/16/20 12:38 Dose: 3 unit Documented by: Insulin Aspart (Insulin Aspart 300 Unit/3 Ml Pen) 5 unit SUBQ TIDWM [facility] [place] Last Admin: 09/16/20 12:39 Dose: 5 unit Documented by: Insulin Glargine (Insulin Glargine 300 Unit/3 Ml Pen) 10 unit SUBQ QPM [facility] [place] Last Admin: 09/15/20 21:43 Dose: 10 unit Documented by: Ketorolac Tromethamine (Ketorolac 15 Mg/Ml Vial) 15 mg IVP Q6HR PRN PRN Reason: HEADACHE Stop: 09/19/20 23:48 Last Admin: 09/16/20 00:17 Dose: 15 mg Documented by: Lorazepam (Lorazepam 0.5 Mg Tablet) 0.25 mg PO Q8H PRN PRN Reason: Anxiety Multi-Ingredient Mouthwash/Gargle (Gi Cocktail 120 Ml Bottle) 30 ml PO Q4H PRN PRN Reason: Abdominal Pain Last Admin: 09/16/20 10:17 Dose: 30 ml Documented by: Ondansetron HCl (Ondansetron 4 Mg/2 Ml Vial) 4 mg IVP Q6HR PRN PRN Reason: Nausea / Vomiting Last Admin: 09/16/20 10:15 Dose: 4 mg Documented by: Pantoprazole Sodium (Pantoprazole 40 Mg Tablet) 40 mg PO QDAC [facility] [place] Last Admin: 09/16/20 10:20 Dose: 40 mg Documented by: Saccharomyces Boulardii (Saccharomyces Boulardii 250 Mg Capsule) 250 mg PO BIDWM [facility] [place] Last Admin: 09/16/20 10:15 Dose: 250 mg Documented by: Sodium Chloride (Sodium Chloride Flush 0.9% 10 Ml Syringe) 10 ml IVP PRN PRN PRN Reason: NEEDED PER PROVIDER ORDERS Last Admin: 09/15/20 12:49 Dose: 10 ml Documented by: Sodium Chloride (Sodium Chloride Flush 0.9% 10 Ml Syringe) 10 ml IVP 0100,0900,1700 [facility] [place] Last Admin: 09/16/20 09:12 Dose: 10 ml Documented by: Throat Lozenges (Benzocaine/Menthol Lozenge) 1 lozenge MM Q2HR PRN PRN Reason: Throat pain Last Admin: 09/16/20 00:27 Dose: 1 lozenge Documented by: Zolpidem Tartrate (Zolpidem 5 Mg Tablet) 5 mg PO QPM PRN PRN Reason: Insomnia Last Admin: 09/16/20 00:27 Dose: 5 mg Documented by:
[2020-09-16] MEDS: SODIUM CHLORIDE 0.9% 1,000 ML IV SCH (17:16)
[2020-09-16] MEDS: cefTRIAXone 1 GM in SODIUM CHLORIDE 0.9% MINIBAG 100 ML IV SCH (21:21)
[2020-09-16] MEDS: AZITHROMYCIN INJ 500 MG in SODIUM CHLORIDE 0.9% 250 ML IV SCH (21:22)
[2020-09-16] MEDS: INSULIN GLARGINE 300 UNIT/3 ML PEN SUBQ SCH (21:22)
[2020-09-16] MEDS ORDERED: LOPERAMIDE 2 MG CAPSULE PO PRN (22:11)
[2020-09-17] MEDS: SODIUM CHLORIDE FLUSH 0.9% 10 ML SYRINGE IVP SCH ×4 (00:23→23:45)
[2020-09-17] MEDS: ZOLPIDEM 5 MG TABLET PO PRN ×2 (00:23→23:45)
[2020-09-17] MEDS: SODIUM CHLORIDE 0.9% 1,000 ML IV SCH (05:23)
[2020-09-17] MEDS: ACETAMINOPHEN 325 MG TABLET PO PRN (05:24)
[2020-09-17] MEDS: PANTOPRAZOLE 40 MG TABLET PO SCH (05:25)
[2020-09-17 05:49] LABS: EOSINOPHILS % (AUTO) 0.2 %; HCT - HEMATOCRIT 34.3 % (37.0-47.0); HGB - HEMOGLOBIN 11.3 g/dL (12.0-16.0); LYMPHOCYTES # (AUTO) 1.6 10^3/uL (1.5-3.5); LYMPHOCYTES % (AUTO) 30.8 %; MEAN CORPUSCULAR HGB CONC 32.9 g/dL (32.0-36.0); MEAN CORPUSCULAR VOLUME 88.2 fL (81.0-99.0); MEAN PLATELET VOLUME 9.5 fL (7.9-10.8); MONOCYTES # (AUTO) 0.4 10^3/uL (0.0-1.0); MONOCYTES % (AUTO) 7.3 %; NEUTROPHILS # (AUTO) 3.1 10^3/uL (1.5-6.6); NEUTROPHILS % (AUTO) 61.1 %; PLT - PLATELET COUNT 195 10^3/uL (130-450); RED BLOOD COUNT 3.89 10^6/uL (4.20-5.40); WHITE BLOOD COUNT 5.1 x10^3/uL (4.8-10.8)
[2020-09-17 06:08] LABS: ALBUMIN 3.3 g/dL (3.2-5.5); BILIRUBIN,DIRECT 0.1 mg/dL (0.1-0.5); BILIRUBIN,TOTAL 0.5 mg/dL (0.2-1.0); CALCIUM 7.9 mg/dL (8.5-10.3); CREATININE 0.6 mg/dL (0.4-1.0); CRP - C-REACTIVE PROTEIN 2.5 mg/dL (0-1.0); POTASSIUM 3.4 mmol/L (3.5-5.0); TOTAL PROTEIN 6.3 g/dL (6.7-8.2)
[2020-09-17] MEDS ORDERED: POTASSIUM CHLORIDE 20 MEQ TABLET PO ONE (07:25)
[2020-09-17] MEDS: ENOXAPARIN 40 MG/0.4 ML SYRINGE SUBQ SCH (08:09)
[2020-09-17] MEDS: SACCHAROMYCES BOULARDII 250 MG CAPSULE PO SCH ×2 (08:09→16:40)
[2020-09-17] MEDS: INSULIN ASPART 300 UNIT/3 ML PEN SUBQ SCH ×7 (08:10→21:38)
[2020-09-17] MEDS: REMDESIVIR 100MG VIAL 100 MG in SODIUM CHLORIDE 0.9% 100ML 100 ML IV SCH (09:13)
[2020-09-17] MEDS: DEXAMETHASONE 10 MG/ML VIAL IVP SCH (09:13)
--- NOTE | 2020-09-17 15:01 | PROVIDER PROGRESS NOTE ---
Assessment/Plan - Problem List (1) Acute respiratory failure with hypoxia Assessment/Plan: 09/17 stable today. but pt still need 6-7 liter of O2. pt did not show acute pulmonary distress. will continue lovenox, Decadron and remdesivir. continue antibiotics, and probiotics 09/16 Patient had low degree fever, also she required more oxygen. now patient had 93% sats with 7 L oxygen. Patient condition is slightly worsening. We will continue COVID-19 treatment, continue antibiotics, continue probiotics, continue supplemental oxygen for patient as needed. 09/15 Patient had 92% sats on 4.5 L of oxygen. Patient is sitting in the chair, patient can speak full sentence without acute respiratory distress now. pt is stable now. will continue lovenox, Decadron and remdesivir. continue antibiotics at the same time, add probiotics (2) Sepsis 09/16 Blood culture show negative for bacteremia. Patient had low degree fever on today, patient required more oxygen. We will continue treated COVID-19 and Pneumonia as well, Continue intravenous IV fluids pt has stable BP now. we will continue treat for Covid 19 and possible CAP pneumonia as well. Follow-up blood cultures. (3) Pneumonia due to COVID-19 virus Conclusion/Plan: pt report she did not do Vaccination for COVID-19. her chest x-ray reveals a right lower lobe infiltrate with COVID-19 positive, She required 4.5 oxygen. She has 92% of sats. We will continue treated COVID-19 with Lovenox, Decadron, remdesivir. Contact precautions. (4) Syncope pt has negative for Orthostatic hypotension. This appears to be either vasovagal or due to dehydration based off of history. We will check obtain an EKG. She is also on telemetry. We will consider an echocardiogram although low suspicion for cardiac etiology at this time if she continue to have problem (5)diabetes 09/16 Patient had A1c 7.7. Patient is on steroid Which could affect her glucose level. We will continue sliding-scale. Patient present hypoglycemia. She report couple years ago she was prediabetic. We will check A1c, continue sliding-scale insulin for patient. We will have diabetic consult for patient. (6)GERD Patient report burning sensation in upper GI. After patient was give GI cocktail, Protonix, patient feel better. Troponin test is negative for ischemia (7)diarrhea 09/17 pt was reported to have diarrhea. pt was given antibiotics and given probiotics also. Covid 19 can diarrhea symptoms, we will check C.diff, and isolation for C.diff - Current Meds Current Meds: Current Medications Generic Name Dose Route Start Last Admin Trade Name Freq PRN Reason Stop Dose Admin Acetaminophen 650 mg 09/14/20 21:37 09/17/20 05:24 Acetaminophen 325 Mg Tablet PO 650 mg Q4HR PRN Administration Pain 1 to 4 Calcium Carbonate/Glycine 500 mg 09/15/20 20:03 09/16/20 00:27 Calcium Carbonate Chew 500 Mg Tablet PO 500 mg TID PRN Administration Heartburn Enoxaparin Sodium 40 mg 09/15/20 09:00 09/17/20 08:09 Enoxaparin 40 Mg/0.4 Ml Syringe SUBQ 40 mg DAILY ANDREIA Administration Ceftriaxone Sodium 1 gm/ 100 mls @ 200 mls/hr 09/15/20 21:00 09/16/20 21:57 Sodium Chloride IV 09/18/20 21:29 Infused HS ANDREIA Infusion Remdesivir 100 mg/ Sodium 100 mls @ 200 mls/hr 09/16/20 09:00 09/17/20 10:19 Chloride IV 09/19/20 09:29 Infused DAILY ANDREIA Infusion Insulin Aspart 1 - 9 unit 09/15/20 08:00 09/17/20 12:03 Insulin Aspart 300 Unit/3 Ml Pen SUBQ 7 unit 0800,1200,1700,2100 ANDREIA Administration Protocol Insulin Aspart 5 unit 09/15/20 08:23 09/17/20 12:04 Insulin Aspart 300 Unit/3 Ml Pen SUBQ 5 unit TIDWM ANDREIA Administration Insulin Glargine 10 unit 09/15/20 21:00 09/16/20 21:22 Insulin Glargine 300 Unit/3 Ml Pen SUBQ 10 unit QPM ANDREIA Administration Ketorolac Tromethamine 15 mg 09/14/20 23:49 09/16/20 00:17 Ketorolac 15 Mg/Ml Vial IVP 09/19/20 23:48 15 mg Q6HR PRN Administration HEADACHE Multi-Ingredient Mouthwash/Gargle 30 ml 09/16/20 09:17 09/16/20 10:17 Gi Cocktail 120 Ml Bottle PO 30 ml Q4H PRN Administration Abdominal Pain Ondansetron HCl 4 mg 09/14/20 21:37 09/16/20 10:15 Ondansetron 4 Mg/2 Ml Vial IVP 4 mg Q6HR PRN Administration Nausea / Vomiting Pantoprazole Sodium 40 mg 09/16/20 09:18 09/17/20 05:25 Pantoprazole 40 Mg Tablet PO 40 mg QDAC ANDREIA Administration Saccharomyces Boulardii 250 mg 09/15/20 17:00 09/17/20 08:09 Saccharomyces Boulardii 250 Mg Capsule PO 250 mg BIDWM ANDREIA Administration Sodium Chloride 10 ml 09/14/20 21:37 09/15/20 12:49 Sodium Chloride Flush 0.9% 10 Ml Syringe IVP 10 ml PRN PRN Administration NEEDED PER PROVIDER ORDERS Sodium Chloride 10 ml 09/15/20 01:00 09/17/20 09:22 Sodium Chloride Flush 0.9% 10 Ml Syringe IVP Not Given 0100,0900,1700 ANDREIA Throat Lozenges 1 lozenge 09/15/20 01:19 09/16/20 00:27 Benzocaine/Menthol Lozenge MM 1 lozenge Q2HR PRN Administration Throat pain Zolpidem Tartrate 5 mg 09/15/20 20:04 09/17/20 00:23 Zolpidem 5 Mg Tablet PO 5 mg QPM PRN Administration Insomnia - Lab Result Fish Bone Diagrams: 09/17/20 05:33 09/17/20 05:33 Subjective - Subjective Patient Reports: Feeling Better Objective Vital Signs: Vital Signs - 24 hr 09/16/20 09/16/20 09/16/20 16:11 18:51 21:26 Temperature 36.8 C 36.8 C Heart Rate 79 Heart Rate [ 79 Brachial] Respiratory 16 16 Rate Blood Pressure 120/67 [Right Brachial artery] O2 Saturation 94 94 95 09/17/20 09/17/20 00:00 08:01 Temperature 36.9 C 36.7 C Heart Rate Heart Rate [ 72 65 Brachial] Respiratory 20 18 Rate Blood Pressure 116/80 107/69 [Right Brachial artery] O2 Saturation 95 94 Oxygen O2 Source Oxymizer Oxygen Flow Rate 4 I&O (Last 24 Hrs): Intake and Output Totals x24h 09/15/20 09/16/20 09/17/20 23:59 23:59 23:59 Intake Total 3790.000 2107.500 1952.493 Balance 3790.000 2107.500 1951.493 General: Alert, Oriented x3, Cooperative, No acute distress HEENT: Atraumatic Neck: Supple Lymphatic: no adenopathy Neuro: Alert, Non Focal, Oriented Times 3 Cardiovascular: Regular rate, Normal S1, Normal S2 Respiratory: Chest non-tender, Rales Abdomen: Normal bowel sounds, Soft Extremities: Normal pulses - Results Results: Laboratory Results WBC 5.1 x10^3/uL (4.8-10.8) 09/17/20 05:33 RBC 3.89 10^6/uL (4.20-5.40) L 09/17/20 05:33 Hgb 11.3 g/dL (12.0-16.0) L 09/17/20 05:33 Hct 34.3 % (37.0-47.0) L 09/17/20 05:33 MCV 88.2 fL (81.0-99.0) 09/17/20 05:33 MCH 29.0 pg (27.0-31.0) 09/17/20 05:33 MCHC 32.9 g/dL (32.0-36.0) 09/17/20 05:33 RDW 14.0 % (12.0-15.0) 09/17/20 05:33 Plt Count 195 10^3/uL (130-450) 09/17/20 05:33 MPV 9.5 fL (7.9-10.8) 09/17/20 05:33 Neut # (Auto) 3.1 10^3/uL (1.5-6.6) 09/17/20 05:33 Lymph # (Auto) 1.6 10^3/uL (1.5-3.5) 09/17/20 05:33 [place] # (Auto) 0.4 10^3/uL (0.0-1.0) 09/17/20 05:33 Eos # (Auto) 0.0 10^3/uL (0.0-0.7) 09/17/20 05:33 Baso # (Auto) 0.0 10^3/uL (0.0-0.1) 09/17/20 05:33 Absolute Nucleated RBC 0.00 x10^3/uL 09/17/20 05:33 Nucleated RBC % 0.0 /100WBC 09/17/20 05:33 Sodium 136 mmol/L (135-145) 09/17/20 05:33 Potassium 3.4 mmol/L (3.5-5.0) L 09/17/20 05:33 Chloride 102 mmol/L (101-111) 09/17/20 05:33 Carbon Dioxide 24 mmol/L (21-32) 09/17/20 05:33 Anion Gap 10.0 (6-13) 09/17/20 05:33 BUN 13 mg/dL (6-20) 09/17/20 05:33 Creatinine 0.6 mg/dL (0.4-1.0) 09/17/20 05:33 Estimated GFR (MDRD) 113 (>89) 09/17/20 05:33 Glucose 170 mg/dL (70-100) H 09/17/20 05:33 POC Whole Bld Glucose 247 mg/dL (70 - 100) H 09/17/20 11:54 Estimat Average Glucose 174 mg/dL (70-100) H 09/15/20 05:54 Hemoglobin A1c % 7.7 % (4.27-6.07) H 09/15/20 05:54 Lactic Acid 0.8 mmol/L (0.5-2.2) 09/14/20 20:54 Calcium 7.9 mg/dL (8.5-10.3) L 09/17/20 05:33 Magnesium 2.0 mg/dL (1.7-2.8) 09/17/20 05:33 Total Bilirubin 0.5 mg/dL (0.2-1.0) 09/17/20 05:33 Direct Bilirubin 0.1 mg/dL (0.1-0.5) 09/17/20 05:33 AST 24 IU/L (10-42) 09/17/20 05:33 ALT 27 IU/L (10-60) 09/17/20 05:33 Alkaline Phosphatase 39 IU/L (42-121) L 09/17/20 05:33 Troponin I High Sens 4.7 ng/L (2.3-14.8) 09/16/20 09:47 C-Reactive Protein 2.5 mg/dL (0-1.0) H 09/17/20 05:33 Total Protein 6.3 g/dL (6.7-8.2) L 09/17/20 05:33 Albumin 3.3 g/dL (3.2-5.5) 09/17/20 05:33 Globulin 3.0 g/dL (2.1-4.2) 09/17/20 05:33 Urine Color YELLOW 09/15/20 03:50 Urine Clarity CLEAR (CLEAR) 09/15/20 03:50 Urine pH 5.5 PH (5.0-7.5) 09/15/20 03:50 Ur Specific [place] 1.025 (1.002-1.030) 09/15/20 03:50 Urine Protein NEGATIVE mg/dL (NEGATIVE) 09/15/20 03:50 Urine Glucose (UA) 500 mg/dL (NEGATIVE) H 09/15/20 03:50 Urine Ketones >=80 mg/dL (NEGATIVE) H 09/15/20 03:50 Urine Occult Blood NEGATIVE (NEGATIVE) 09/15/20 03:50 Urine Nitrite NEGATIVE (NEGATIVE) 09/15/20 03:50 Urine Bilirubin NEGATIVE (NEGATIVE) 09/15/20 03:50 Urine Urobilinogen 0.2 (NORMAL) E.U./dL (NORMAL) 09/15/20 03:50 Ur Leukocyte Esterase NEGATIVE (NEGATIVE) 09/15/20 03:50 Ur Microscopic Review NOT INDICATED 09/15/20 03:50 Urine Culture Comments NOT INDICATED 09/15/20 03:50 Urine HCG, Qual NEGATIVE 09/15/20 03:50 Nasal Adenovirus (PCR) NOT DETECTED 09/14/20 21:50 Nasal B. parapertussis DNA (PCR) NOT DETECTED 09/14/20 21:50 Nasal Coronavir 229E PCR NOT DETECTED 09/14/20 21:50 Nasal Coronavir HKU1 PCR NOT DETECTED 09/14/20 21:50 Nasal Coronavir NL63 PCR NOT DETECTED 09/14/20 21:50 Nasal Coronavir OC43 PCR NOT DETECTED 09/14/20 21:50 Nasal Enterovir/Rhinovir PCR NOT DETECTED 09/14/20 21:50 Nasal Influenza B PCR NOT DETECTED 09/14/20 21:50 Nasal Influenza A PCR NOT DETECTED 09/14/20 21:50 Nasal Parainfluen 1 PCR NOT DETECTED 09/14/20 21:50 Nasal Parainfluen 2 PCR NOT DETECTED 09/14/20 21:50 Nasal Parainfluen 3 PCR NOT DETECTED 09/14/20 21:50 Nasal Parainfluen 4 PCR NOT DETECTED 09/14/20 21:50 Nasal RSV (PCR) NOT DETECTED 09/14/20 21:50 Nasal B.pertussis DNA PCR NOT DETECTED 09/14/20 21:50 Nasal C.pneumoniae (PCR) NOT DETECTED 09/14/20 21:50 Brian Human Metapneumo PCR NOT DETECTED 09/14/20 21:50 Nasal M.pneumoniae (PCR) NOT DETECTED 09/14/20 21:50 Nasal SARS-CoV-2 (PCR) DETECTED A 09/14/20 21:50 Sepsis Event Note (H) - Evaluation Current Stage of Sepsis: Sepsis Possible source of Sepsis: positive: Pulmonary - Sepsis Criteria Sepsis Criteria: Recorded Temperature greater than 38.3C or Less than 36C, Recorded Heart Rate greater than 90 bpm, Recorded Respiratory Rate greater than 20, Respiratory: Increasing oxygen requirements, WBC count greater than 12,000 or less than 4000 ABX Reporting Has patient been on IV antibiotics over the past 48 hours?: Yes Current Medications - Current Medications Current Medications: Active Medications Acetaminophen (Acetaminophen 325 Mg Tablet) 650 mg PO Q4HR PRN PRN Reason: Pain 1 to 4 Last Admin: 09/17/20 05:24 Dose: 650 mg Documented by: Calcium Carbonate/Glycine (Calcium Carbonate Chew 500 Mg Tablet) 500 mg PO TID PRN PRN Reason: Heartburn Last Admin: 09/16/20 00:27 Dose: 500 mg Documented by: Dexamethasone (Dexamethasone 4 Mg Tablet) 6 mg PO DAILYWM ANDREIA Stop: 09/25/20 07:59 Enoxaparin Sodium (Enoxaparin 40 Mg/0.4 Ml Syringe) 40 mg SUBQ DAILY [facility] Last Admin: 09/17/20 08:09 Dose: 40 mg Documented by: Ceftriaxone Sodium 1 gm/ (Sodium Chloride) 100 mls @ 200 mls/hr IV HS [facility] Stop: 09/18/20 21:29 Last Infusion: 09/16/20 21:57 Dose: Infused Documented by: Remdesivir 100 mg/ Sodium (Chloride) 100 mls @ 200 mls/hr IV DAILY ANDREIA Stop: 09/19/20 09:29 Last Infusion: 09/17/20 10:19 Dose: Infused Documented by: Insulin Aspart (Insulin Aspart 300 Unit/3 Ml Pen) 1 - 9 unit SUBQ 0800,1200,1700,2100 [facility]; Protocol Last Admin: 09/17/20 12:03 Dose: 7 unit Documented by: Insulin Aspart (Insulin Aspart 300 Unit/3 Ml Pen) 5 unit SUBQ TIDWM [facility] Last Admin: 09/17/20 12:04 Dose: 5 unit Documented by: Insulin Glargine (Insulin Glargine 300 Unit/3 Ml Pen) 10 unit SUBQ QPM [facility] Last Admin: 09/16/20 21:22 Dose: 10 unit Documented by: Ketorolac Tromethamine (Ketorolac 15 Mg/Ml Vial) 15 mg IVP Q6HR PRN PRN Reason: HEADACHE Stop: 09/19/20 23:48 Last Admin: 09/16/20 00:17 Dose: 15 mg Documented by: Loperamide HCl (Loperamide 2 Mg Capsule) 2 mg PO QID PRN PRN Reason: Diarrhea Lorazepam (Lorazepam 0.5 Mg Tablet) 0.25 mg PO Q8H PRN PRN Reason: Anxiety Multi-Ingredient Mouthwash/Gargle (Gi Cocktail 120 Ml Bottle) 30 ml PO Q4H PRN PRN Reason: Abdominal Pain Last Admin: 09/16/20 10:17 Dose: 30 ml Documented by: Ondansetron HCl (Ondansetron 4 Mg/2 Ml Vial) 4 mg IVP Q6HR PRN PRN Reason: Nausea / Vomiting Last Admin: 09/16/20 10:15 Dose: 4 mg Documented by: Pantoprazole Sodium (Pantoprazole 40 Mg Tablet) 40 mg PO QDAC [facility] Last Admin: 09/17/20 05:25 Dose: 40 mg Documented by: Saccharomyces Boulardii (Saccharomyces Boulardii 250 Mg Capsule) 250 mg PO BIDWM [facility] Last Admin: 09/17/20 08:09 Dose: 250 mg Documented by: Sodium Chloride (Sodium Chloride Flush 0.9% 10 Ml Syringe) 10 ml IVP PRN PRN PRN Reason: NEEDED PER PROVIDER ORDERS Last Admin: 09/15/20 12:49 Dose: 10 ml Documented by: Sodium Chloride (Sodium Chloride Flush 0.9% 10 Ml Syringe) 10 ml IVP 0100,0900,1700 [facility] Last Admin: 09/17/20 09:22 Dose: Not Given Documented by: Throat Lozenges (Benzocaine/Menthol Lozenge) 1 lozenge MM Q2HR PRN PRN Reason: Throat pain Last Admin: 09/16/20 00:27 Dose: 1 lozenge Documented by: Zolpidem Tartrate (Zolpidem 5 Mg Tablet) 5 mg PO QPM PRN PRN Reason: Insomnia Last Admin: 09/17/20 00:23 Dose: 5 mg Documented by:
[2020-09-17] MEDS: INSULIN GLARGINE 300 UNIT/3 ML PEN SUBQ SCH (21:38)
[2020-09-17] MEDS: cefTRIAXone 1 GM in SODIUM CHLORIDE 0.9% MINIBAG 100 ML IV SCH (21:39)
[2020-09-18 05:42] LABS: BASOPHILS % (AUTO) 0.4 %; EOSINOPHILS % (AUTO) 0.5 %; HCT - HEMATOCRIT 35.2 % (37.0-47.0); HGB - HEMOGLOBIN 11.8 g/dL (12.0-16.0); LYMPHOCYTES # (AUTO) 1.7 10^3/uL (1.5-3.5); LYMPHOCYTES % (AUTO) 31.2 %; MEAN CORPUSCULAR HEMOGLOBIN 29.1 pg (27.0-31.0); MEAN CORPUSCULAR HGB CONC 33.5 g/dL (32.0-36.0); MEAN CORPUSCULAR VOLUME 86.9 fL (81.0-99.0); MEAN PLATELET VOLUME 9.9 fL (7.9-10.8); MONOCYTES # (AUTO) 0.4 10^3/uL (0.0-1.0); MONOCYTES % (AUTO) 6.3 %; NEUTROPHILS # (AUTO) 3.4 10^3/uL (1.5-6.6); NEUTROPHILS % (AUTO) 60.9 %; PLT - PLATELET COUNT 226 10^3/uL (130-450); RED BLOOD COUNT 4.05 10^6/uL (4.20-5.40); RED CELL DISTRIBUTION WIDTH 13.8 % (12.0-15.0); WHITE BLOOD COUNT 5.5 x10^3/uL (4.8-10.8)
[2020-09-18 06:01] LABS: ALBUMIN 3.6 g/dL (3.2-5.5); BILIRUBIN,DIRECT 0.1 mg/dL (0.1-0.5); BILIRUBIN,TOTAL 0.7 mg/dL (0.2-1.0); CALCIUM 8.3 mg/dL (8.5-10.3); CREATININE 0.6 mg/dL (0.4-1.0); CRP - C-REACTIVE PROTEIN 1.4 mg/dL (0-1.0); MAGNESIUM 2.2 mg/dL (1.7-2.8); POTASSIUM 3.5 mmol/L (3.5-5.0); TOTAL PROTEIN 6.8 g/dL (6.7-8.2)
[2020-09-18] MEDS: PANTOPRAZOLE 40 MG TABLET PO SCH (06:17)
[2020-09-18] MEDS: dexAMETHasone 4 MG TABLET PO SCH (08:08)
[2020-09-18] MEDS: SACCHAROMYCES BOULARDII 250 MG CAPSULE PO SCH ×2 (08:08→16:14)
[2020-09-18] MEDS: INSULIN ASPART 300 UNIT/3 ML PEN SUBQ SCH ×7 (08:47→20:20)
[2020-09-18] MEDS: ENOXAPARIN 40 MG/0.4 ML SYRINGE SUBQ SCH (08:49)
[2020-09-18] MEDS: SODIUM CHLORIDE FLUSH 0.9% 10 ML SYRINGE IVP SCH ×3 (09:28→23:59)
[2020-09-18] MEDS: REMDESIVIR 100MG VIAL 100 MG in SODIUM CHLORIDE 0.9% 100ML 100 ML IV SCH (09:28)
--- NOTE | 2020-09-18 10:55 | PROVIDER PROGRESS NOTE ---
Assessment/Plan - Problem List (1) Acute respiratory failure with hypoxia Assessment/Plan: 09/18 Patient has no acute respiratory distress, but the patient still needed 6 L oxygen at 95% of sats. We will try to titrated down oxygen, keep patient at 93% or above 93%. continue lovenox, Decadron and remdesivir. continue antibiotics, and probiotics 09/17 stable today. but pt still need 6-7 liter of O2. pt did not show acute pulmonary distress. will continue lovenox, Decadron and remdesivir. continue antibiotics, and probiotics 09/16 Patient had low degree fever, also she required more oxygen. now patient h ad 93% sats with 7 L oxygen. Patient condition is slightly worsening. We will continue COVID-19 treatment, continue antibiotics, continue probiotics, continue supplemental oxygen for patient as needed. 09/15 Patient had 92% sats on 4.5 L of oxygen. Patient is sitting in the chair, patient can speak full sentence without acute respiratory distress now. pt is stable now. will continue lovenox, Decadron and remdesivir. continue antibiotics at the same time, add probiotics (2) Sepsis 09/18 resolved to acute sepsis. Patient has no more fever, patient's WBC in the normal range, patient has no tachycardia. We will treat underlying pneumonia As above. 09/16 Blood culture show negative for bacteremia. Patient had low degree fever on today, patient required more oxygen. We will continue treated COVID-19 and Pneumonia as well, Continue intravenous IV fluids pt has stable BP now. we will continue treat for Covid 19 and possible CAP pneumonia as well. Follow-up blood cultures. (3) Pneumonia due to COVID-19 virus Conclusion/Plan: pt report she did not do Vaccination for COVID-19. her chest x-ray reveals a right lower lobe infiltrate with COVID-19 positive, She required 4.5 oxygen. She has 92% of sats. We will continue treated COVID-19 with Lovenox, Decadron, remdesivir. Contact precautions. (4) Syncope 09/18. Patient has normal range of orthostatic blood pressure, Patient was not reported to have syncope. Patient blood pressure is in the normal range. We will hold patient intravenous IV fluids since patient eating 100% of her diet. Clinically pt did not show dehydration pt has negative for Orthostatic hypotension. This appears to be either vasovagal or due to dehydration based off of history. We will check obtain an EKG. She is also on telemetry. We will consider an echocardiogram although low suspicion for cardiac etiology at this time if she continue to have problem (5)diabetes 09/16 Patient had A1c 7.7. Patient is on steroid Which could affect her glucose level. We will continue sliding-scale. Patient present hypoglycemia. She report couple years ago she was prediabetic. We will check A1c, continue sliding-scale insulin for patient. We will have diabetic consult for patient. (6)GERD Patient report burning sensation in upper GI. After patient was give GI cocktail, Protonix, patient feel better. Troponin test is negative for ischemia (7)diarrhea 09/18 C. difficile test is negative, patient has no more diarrhea as far. We will continue probiotics. We will continue treated for COVID-19 09/17 pt was reported to have diarrhea. pt was given antibiotics and given probio tics also. Covid 19 can diarrhea symptoms, we will check C.diff, and isolation for C.diff - Current Meds Current Meds: Current Medications Generic Name Dose Route Start Last Admin Trade Name Freq PRN Reason Stop Dose Admin Acetaminophen 650 mg 09/14/20 21:37 09/17/20 05:24 Acetaminophen 325 Mg Tablet PO 650 mg Q4HR PRN Administration Pain 1 to 4 Calcium Carbonate/Glycine 500 mg 09/15/20 20:03 09/16/20 00:27 Calcium Carbonate Chew 500 Mg Tablet PO 500 mg TID PRN Administration Heartburn Dexamethasone 6 mg 09/18/20 08:00 09/18/20 08:08 Dexamethasone 4 Mg Tablet PO 09/25/20 07:59 6 mg DAILYWM ANDREIA Administration Enoxaparin Sodium 40 mg 09/15/20 09:00 09/18/20 08:49 Enoxaparin 40 Mg/0.4 Ml Syringe SUBQ 40 mg DAILY ANDREIA Administration Ceftriaxone Sodium 1 gm/ 100 mls @ 200 mls/hr 09/15/20 21:00 09/17/20 22:09 Sodium Chloride IV 09/18/20 21:29 Infused HS ANDREIA Infusion Remdesivir 100 mg/ Sodium 100 mls @ 200 mls/hr 09/16/20 09:00 09/18/20 09:28 Chloride IV 09/19/20 09:29 200 mls/hr DAILY ANDREIA Administration Insulin Aspart 5 unit 09/15/20 08:23 09/18/20 08:47 Insulin Aspart 300 Unit/3 Ml Pen SUBQ 5 unit TIDWM ANDREIA Administration Insulin Aspart 2 - 10 unit 09/17/20 21:00 09/18/20 08:48 Insulin Aspart 300 Unit/3 Ml Pen SUBQ Not Given 0800,1200,1700,2100 [facility] Protocol Insulin Glargine 10 unit 09/15/20 21:00 09/17/20 21:38 Insulin Glargine 300 Unit/3 Ml Pen SUBQ 10 unit QPM ANDREIA Administration Ketorolac Tromethamine 15 mg 09/14/20 23:49 09/16/20 00:17 Ketorolac 15 Mg/Ml Vial IVP 09/19/20 23:48 15 mg Q6HR PRN Administration HEADACHE Multi-Ingredient Mouthwash/Gargle 30 ml 09/16/20 09:17 09/16/20 10:17 Gi Cocktail 120 Ml Bottle PO 30 ml Q4H PRN Administration Abdominal Pain Ondansetron HCl 4 mg 09/14/20 21:37 09/16/20 10:15 Ondansetron 4 Mg/2 Ml Vial IVP 4 mg Q6HR PRN Administration Nausea / Vomiting Pantoprazole Sodium 40 mg 09/16/20 09:18 09/18/20 06:17 Pantoprazole 40 Mg Tablet PO 40 mg QDAC ANDREIA Administration Saccharomyces Boulardii 250 mg 09/15/20 17:00 09/18/20 08:08 Saccharomyces Boulardii 250 Mg Capsule PO 250 mg BIDWM ANDREIA Administration Sodium Chloride 10 ml 09/14/20 21:37 09/15/20 12:49 Sodium Chloride Flush 0.9% 10 Ml Syringe IVP 10 ml PRN PRN Administration NEEDED PER PROVIDER ORDERS Sodium Chloride 10 ml 09/15/20 01:00 09/18/20 09:28 Sodium Chloride Flush 0.9% 10 Ml Syringe IVP 10 ml 0100,0900,1700 [facility] Administration Throat Lozenges 1 lozenge 09/15/20 01:19 09/16/20 00:27 Benzocaine/Menthol Lozenge MM 1 lozenge Q2HR PRN Administration Throat pain Zolpidem Tartrate 5 mg 09/15/20 20:04 09/17/20 23:45 Zolpidem 5 Mg Tablet PO 5 mg QPM PRN Administration Insomnia - Lab Result Fish Bone Diagrams: 09/18/20 05:06 09/18/20 05:06 - Additional Planning My Orders: My Active Orders 09/17/20 21:00 Insulin Aspart [NovoLOG] 2 - 10 unit SUBQ 0800,1200,1700,2100 Subjective - Subjective Patient Reports: Feeling Better Objective Vital Signs: Vital Signs - 24 hr 09/17/20 09/17/20 09/18/20 16:30 23:51 07:42 Temperature 37.0 C 36.6 C 36.9 C Heart Rate [ 63 65 57 L Brachial] Respiratory 18 18 16 Rate Blood Pressure 123/77 131/77 H 122/76 [Right Brachial artery] O2 Saturation 94 97 95 Oxygen O2 Source Oxymizer Oxygen Flow Rate 4 I&O (Last 24 Hrs): Intake and Output Totals x24h 09/16/20 09/17/20 09/18/20 23:59 23:59 23:59 Intake Total 2107.500 2352.493 540 Balance 2107.500 2352.493 540 General: Alert, Oriented x3, Cooperative, No acute distress HEENT: Atraumatic Neck: Supple Lymphatic: no adenopathy Neuro: Alert, Non Focal, Oriented Times 3 Cardiovascular: Regular rate, Normal S1, Normal S2 Respiratory: Chest non-tender Abdomen: Normal bowel sounds, Soft, No tenderness Extremities: Normal pulses - Results Results: Laboratory Results WBC 5.5 x10^3/uL (4.8-10.8) 09/18/20 05:06 RBC 4.05 10^6/uL (4.20-5.40) L 09/18/20 05:06 Hgb 11.8 g/dL (12.0-16.0) L 09/18/20 05:06 Hct 35.2 % (37.0-47.0) L 09/18/20 05:06 MCV 86.9 fL (81.0-99.0) 09/18/20 05:06 MCH 29.1 pg (27.0-31.0) 09/18/20 05:06 MCHC 33.5 g/dL (32.0-36.0) 09/18/20 05:06 RDW 13.8 % (12.0-15.0) 09/18/20 05:06 Plt Count 226 10^3/uL (130-450) 09/18/20 05:06 MPV 9.9 fL (7.9-10.8) 09/18/20 05:06 Neut # (Auto) 3.4 10^3/uL (1.5-6.6) 09/18/20 05:06 Lymph # (Auto) 1.7 10^3/uL (1.5-3.5) 09/18/20 05:06 [place] # (Auto) 0.4 10^3/uL (0.0-1.0) 09/18/20 05:06 Eos # (Auto) 0.0 10^3/uL (0.0-0.7) 09/18/20 05:06 Baso # (Auto) 0.0 10^3/uL (0.0-0.1) 09/18/20 05:06 Absolute Nucleated RBC 0.00 x10^3/uL 09/18/20 05:06 Nucleated RBC % 0.0 /100WBC 09/18/20 05:06 Sodium 136 mmol/L (135-145) 09/18/20 05:06 Potassium 3.5 mmol/L (3.5-5.0) 09/18/20 05:06 Chloride 100 mmol/L (101-111) L 09/18/20 05:06 Carbon Dioxide 25 mmol/L (21-32) 09/18/20 05:06 Anion Gap 11.0 (6-13) 09/18/20 05:06 BUN 15 mg/dL (6-20) 09/18/20 05:06 Creatinine 0.6 mg/dL (0.4-1.0) 09/18/20 05:06 Estimated GFR (MDRD) 113 (>89) 09/18/20 05:06 Glucose 147 mg/dL (70-100) H 09/18/20 05:06 POC Whole Bld Glucose 123 mg/dL (70 - 100) H 09/18/20 07:50 Estimat Average Glucose 174 mg/dL (70-100) H 09/15/20 05:54 Hemoglobin A1c % 7.7 % (4.27-6.07) H 09/15/20 05:54 Lactic Acid 0.8 mmol/L (0.5-2.2) 09/14/20 20:54 Calcium 8.3 mg/dL (8.5-10.3) L 09/18/20 05:06 Magnesium 2.2 mg/dL (1.7-2.8) 09/18/20 05:06 Total Bilirubin 0.7 mg/dL (0.2-1.0) 09/18/20 05:06 Direct Bilirubin 0.1 mg/dL (0.1-0.5) 09/18/20 05:06 AST 27 IU/L (10-42) 09/18/20 05:06 ALT 29 IU/L (10-60) 09/18/20 05:06 Alkaline Phosphatase 40 IU/L (42-121) L 09/18/20 05:06 Troponin I High Sens 4.7 ng/L (2.3-14.8) 09/16/20 09:47 C-Reactive Protein 1.4 mg/dL (0-1.0) H 09/18/20 05:06 Total Protein 6.8 g/dL (6.7-8.2) 09/18/20 05:06 Albumin 3.6 g/dL (3.2-5.5) 09/18/20 05:06 Globulin 3.2 g/dL (2.1-4.2) 09/18/20 05:06 Urine Color YELLOW 09/15/20 03:50 Urine Clarity CLEAR (CLEAR) 09/15/20 03:50 Urine pH 5.5 PH (5.0-7.5) 09/15/20 03:50 Ur Specific [place] 1.025 (1.002-1.030) 09/15/20 03:50 Urine Protein NEGATIVE mg/dL (NEGATIVE) 09/15/20 03:50 Urine Glucose (UA) 500 mg/dL (NEGATIVE) H 09/15/20 03:50 Urine Ketones >=80 mg/dL (NEGATIVE) H 09/15/20 03:50 Urine Occult Blood NEGATIVE (NEGATIVE) 09/15/20 03:50 Urine Nitrite NEGATIVE (NEGATIVE) 09/15/20 03:50 Urine Bilirubin NEGATIVE (NEGATIVE) 09/15/20 03:50 Urine Urobilinogen 0.2 (NORMAL) E.U./dL (NORMAL) 09/15/20 03:50 Ur Leukocyte Esterase NEGATIVE (NEGATIVE) 09/15/20 03:50 Ur Microscopic Review NOT INDICATED 09/15/20 03:50 Urine Culture Comments NOT INDICATED 09/15/20 03:50 Urine HCG, Qual NEGATIVE 09/15/20 03:50 Nasal Adenovirus (PCR) NOT DETECTED 09/14/20 21:50 Nasal B. parapertussis DNA (PCR) NOT DETECTED 09/14/20 21:50 Nasal Coronavir 229E PCR NOT DETECTED 09/14/20 21:50 Nasal Coronavir HKU1 PCR NOT DETECTED 09/14/20 21:50 Nasal Coronavir NL63 PCR NOT DETECTED 09/14/20 21:50 Nasal Coronavir OC43 PCR NOT DETECTED 09/14/20 21:50 Nasal Enterovir/Rhinovir PCR NOT DETECTED 09/14/20 21:50 Nasal Influenza B PCR NOT DETECTED 09/14/20 21:50 Nasal Influenza A PCR NOT DETECTED 09/14/20 21:50 Nasal Parainfluen 1 PCR NOT DETECTED 09/14/20 21:50 Nasal Parainfluen 2 PCR NOT DETECTED 09/14/20 21:50 Nasal Parainfluen 3 PCR NOT DETECTED 09/14/20 21:50 Nasal Parainfluen 4 PCR NOT DETECTED 09/14/20 21:50 Nasal RSV (PCR) NOT DETECTED 09/14/20 21:50 Nasal B.pertussis DNA PCR NOT DETECTED 09/14/20 21:50 Nasal C.pneumoniae (PCR) NOT DETECTED 09/14/20 21:50 Brian Human Metapneumo PCR NOT DETECTED 09/14/20 21:50 Nasal M.pneumoniae (PCR) NOT DETECTED 09/14/20 21:50 Nasal SARS-CoV-2 (PCR) DETECTED A 09/14/20 21:50 Stl C. diff Tox B Gene NEGATIVE (NEGATIVE) 09/17/20 05:20 Sepsis Event Note (H) - Evaluation Current Stage of Sepsis: Sepsis Possible source of Sepsis: positive: Pulmonary - Sepsis Criteria Sepsis Criteria: Recorded Temperature greater than 38.3C or Less than 36C, Recorded Heart Rate greater than 90 bpm, Recorded Respiratory Rate greater than 20, Respiratory: Increasing oxygen requirements, WBC count greater than 12,000 or less than 4000 ABX Reporting Has patient been on IV antibiotics over the past 48 hours?: Yes Current Medications - Current Medications Current Medications: Active Medications Acetaminophen (Acetaminophen 325 Mg Tablet) 650 mg PO Q4HR PRN PRN Reason: Pain 1 to 4 Last Admin: 09/17/20 05:24 Dose: 650 mg Documented by: Calcium Carbonate/Glycine (Calcium Carbonate Chew 500 Mg Tablet) 500 mg PO TID PRN PRN Reason: Heartburn Last Admin: 09/16/20 00:27 Dose: 500 mg Documented by: Dexamethasone (Dexamethasone 4 Mg Tablet) 6 mg PO DAILYWM [facility] Stop: 09/25/20 07:59 Last Admin: 09/18/20 08:08 Dose: 6 mg Documented by: Enoxaparin Sodium (Enoxaparin 40 Mg/0.4 Ml Syringe) 40 mg SUBQ DAILY [facility] Last Admin: 09/18/20 08:49 Dose: 40 mg Documented by: Ceftriaxone Sodium 1 gm/ (Sodium Chloride) 100 mls @ 200 mls/hr IV HS [facility] Stop: 09/18/20 21:29 Last Infusion: 09/17/20 22:09 Dose: Infused Documented by: Remdesivir 100 mg/ Sodium (Chloride) 100 mls @ 200 mls/hr IV DAILY [facility] Stop: 09/19/20 09:29 Last Admin: 09/18/20 09:28 Dose: 200 mls/hr Documented by: Insulin Aspart (Insulin Aspart 300 Unit/3 Ml Pen) 5 unit SUBQ TIDWM [facility] Last Admin: 09/18/20 08:47 Dose: 5 unit Documented by: Insulin Aspart (Insulin Aspart 300 Unit/3 Ml Pen) 2 - 10 unit SUBQ 0800,1200,1700,2100 [facility]; Protocol Last Admin: 09/18/20 08:48 Dose: Not Given Documented by: Insulin Glargine (Insulin Glargine 300 Unit/3 Ml Pen) 10 unit SUBQ QPM [facility] Last Admin: 09/17/20 21:38 Dose: 10 unit Documented by: Ketorolac Tromethamine (Ketorolac 15 Mg/Ml Vial) 15 mg IVP Q6HR PRN PRN Reason: HEADACHE Stop: 09/19/20 23:48 Last Admin: 09/16/20 00:17 Dose: 15 mg Documented by: Loperamide HCl (Loperamide 2 Mg Capsule) 2 mg PO QID PRN PRN Reason: Diarrhea Lorazepam (Lorazepam 0.5 Mg Tablet) 0.25 mg PO Q8H PRN PRN Reason: Anxiety Multi-Ingredient Mouthwash/Gargle (Gi Cocktail 120 Ml Bottle) 30 ml PO Q4H PRN PRN Reason: Abdominal Pain Last Admin: 09/16/20 10:17 Dose: 30 ml Documented by: Ondansetron HCl (Ondansetron 4 Mg/2 Ml Vial) 4 mg IVP Q6HR PRN PRN Reason: Nausea / Vomiting Last Admin: 09/16/20 10:15 Dose: 4 mg Documented by: Pantoprazole Sodium (Pantoprazole 40 Mg Tablet) 40 mg PO QDAC [facility] Last Admin: 09/18/20 06:17 Dose: 40 mg Documented by: Saccharomyces Boulardii (Saccharomyces Boulardii 250 Mg Capsule) 250 mg PO BIDWM [facility] Last Admin: 09/18/20 08:08 Dose: 250 mg Documented by: Sodium Chloride (Sodium Chloride Flush 0.9% 10 Ml Syringe) 10 ml IVP PRN PRN PRN Reason: NEEDED PER PROVIDER ORDERS Last Admin: 09/15/20 12:49 Dose: 10 ml Documented by: Sodium Chloride (Sodium Chloride Flush 0.9% 10 Ml Syringe) 10 ml IVP 0100,0900,1700 [facility] Last Admin: 09/18/20 09:28 Dose: 10 ml Documented by: Throat Lozenges (Benzocaine/Menthol Lozenge) 1 lozenge MM Q2HR PRN PRN Reason: Throat pain Last Admin: 09/16/20 00:27 Dose: 1 lozenge Documented by: Zolpidem Tartrate (Zolpidem 5 Mg Tablet) 5 mg PO QPM PRN PRN Reason: Insomnia Last Admin: 09/17/20 23:45 Dose: 5 mg Documented by: No Known Home Medications 09/18/20
[2020-09-18] MEDS: ACETAMINOPHEN 325 MG TABLET PO PRN (16:14)
[2020-09-18] MEDS ORDERED: INSULIN ASPART 300 UNIT/3 ML PEN SUBQ ONE (16:55)
[2020-09-18] MEDS: INSULIN GLARGINE 300 UNIT/3 ML PEN SUBQ SCH (20:21)
[2020-09-18] MEDS: cefTRIAXone 1 GM in SODIUM CHLORIDE 0.9% MINIBAG 100 ML IV SCH (22:00)
[2020-09-18] MEDS: ZOLPIDEM 5 MG TABLET PO PRN (23:57)
[2020-09-19] MEDS: ACETAMINOPHEN 325 MG TABLET PO PRN ×3 (00:07→20:57)
[2020-09-19] MEDS: PANTOPRAZOLE 40 MG TABLET PO SCH (06:47)
[2020-09-19 06:53] LABS: BASOPHILS % (AUTO) 0.1 %; EOSINOPHILS % (AUTO) 0.4 %; HCT - HEMATOCRIT 38.3 % (37.0-47.0); HGB - HEMOGLOBIN 13.1 g/dL (12.0-16.0); LYMPHOCYTES # (AUTO) 1.9 10^3/uL (1.5-3.5); LYMPHOCYTES % (AUTO) 23.6 %; MEAN CORPUSCULAR HEMOGLOBIN 29.2 pg (27.0-31.0); MEAN CORPUSCULAR HGB CONC 34.2 g/dL (32.0-36.0); MEAN CORPUSCULAR VOLUME 85.3 fL (81.0-99.0); MEAN PLATELET VOLUME 9.5 fL (7.9-10.8); MONOCYTES # (AUTO) 0.5 10^3/uL (0.0-1.0); NEUTROPHILS # (AUTO) 5.4 10^3/uL (1.5-6.6); NEUTROPHILS % (AUTO) 68.6 %; PLT - PLATELET COUNT 282 10^3/uL (130-450); RED BLOOD COUNT 4.49 10^6/uL (4.20-5.40); RED CELL DISTRIBUTION WIDTH 13.2 % (12.0-15.0); WHITE BLOOD COUNT 7.9 x10^3/uL (4.8-10.8)
[2020-09-19 07:07] LABS: ALBUMIN 3.8 g/dL (3.2-5.5); ALKALINE PHOSPHATASE 43 IU/L (42-121); ALT ALANINE AMINOTRANSFERASE 38 IU/L (10-60); AST ASPARTATE AMINOTRANSFERASE 33 IU/L (10-42); BILIRUBIN,DIRECT 0.1 mg/dL (0.1-0.5); BILIRUBIN,TOTAL 0.7 mg/dL (0.2-1.0); BUN - BLOOD UREA NITROGEN 17 mg/dL (6-20); CARBON DIOXIDE - CO2 25 mmol/L (21-32); CHLORIDE 103 mmol/L (101-111); CREATININE 0.6 mg/dL (0.4-1.0); CRP - C-REACTIVE PROTEIN < 1.0 mg/dL (0-1.0); GFR - MDRD 113 (>89); GLUCOSE 152 mg/dL (70-100); MAGNESIUM 2.1 mg/dL (1.7-2.8); POTASSIUM 3.7 mmol/L (3.5-5.0); SODIUM 138 mmol/L (135-145); TOTAL PROTEIN 7.1 g/dL (6.7-8.2)
[2020-09-19 07:26] LABS: PLATELET ESTIMATE, MANUAL NORMAL (130-450,000) (NORMAL); PLATELET MORPHOLOGY NORMAL APPEARANCE (NORMAL); RBC MORPHOLOGY (MULTIPLE) NORMAL APPEARANCE (NORMAL)
[2020-09-19 07:27] LABS: DIFFERENTIAL COMMENT Y; WBC MORPHOLOGY (MULTIPLE) NORMAL APPEARANCE (NORMAL)
--- NOTE | 2020-09-19 07:53 | PROVIDER PROGRESS NOTE ---
Assessment/Plan - Problem List (1) Acute respiratory failure with hypoxia Assessment/Plan: Secondary to COVID-19 pneumonia. Patient is currently on 4 L of oxygen via nasal cannula with oxygen saturation of 93%. She appears comfortable. We will attempt to wean off supplemental oxygen. If tolerating, will consider discharge tomorrow 09/20/20. Patient is receiving her last dose of remdesivir today. Hilda completed her regimen of azithromycin and Rocephin today. Continue dexamethasone 6 mg p.o. daily. (2) Hypoxia Assessment/Plan: Secondary to Covid pneumonia. Patient is currently on 4 L of oxygen via nasal cannula with oxygen saturation of 93%. We will attempt to wean off supplemental oxygen. (4) Sepsis Assessment/Plan: No longer septic. Resolved. (5) Syncope Assessment/Plan: Resolved. - Current Meds Current Meds: Current Medications Generic Name Dose Route Start Last Admin Trade Name Freq PRN Reason Stop Dose Admin Acetaminophen 650 mg 09/14/20 21:37 09/19/20 00:07 Acetaminophen 325 Mg Tablet PO 650 mg Q4HR PRN Administration Pain 1 to 4 Calcium Carbonate/Glycine 500 mg 09/15/20 20:03 09/16/20 00:27 Calcium Carbonate Chew 500 Mg Tablet PO 500 mg TID PRN Administration Heartburn Dexamethasone 6 mg 09/18/20 08:00 09/18/20 08:08 Dexamethasone 4 Mg Tablet PO 09/25/20 07:59 6 mg DAILYWM ANDREIA Administration Enoxaparin Sodium 40 mg 09/15/20 09:00 09/18/20 08:49 Enoxaparin 40 Mg/0.4 Ml Syringe SUBQ 40 mg DAILY ANDREIA Administration Remdesivir 100 mg/ Sodium 100 mls @ 200 mls/hr 09/16/20 09:00 09/18/20 10:00 Chloride IV 09/19/20 09:29 Infused DAILY ANDREIA Infusion Insulin Aspart 5 unit 09/15/20 08:23 09/18/20 16:14 Insulin Aspart 300 Unit/3 Ml Pen SUBQ 5 unit TIDWM ANDREIA Administration Insulin Aspart 2 - 10 unit 09/17/20 21:00 09/18/20 20:20 Insulin Aspart 300 Unit/3 Ml Pen SUBQ 09/19/20 08:00 8 unit 0800,1200,1700,2100 ANDREIA Administration Protocol Insulin Glargine 10 unit 09/15/20 21:00 07/02/21 20:21 Insulin Glargine 300 Unit/3 Ml Pen SUBQ 10 unit QPM ANDREIA Administration Ketorolac Tromethamine 15 mg 09/14/20 23:49 09/16/20 00:17 Ketorolac 15 Mg/Ml Vial IVP 09/19/20 23:48 15 mg Q6HR PRN Administration HEADACHE Multi-Ingredient Mouthwash/Gargle 30 ml 09/16/20 09:17 09/16/20 10:17 Gi Cocktail 120 Ml Bottle PO 30 ml Q4H PRN Administration Abdominal Pain Ondansetron HCl 4 mg 09/14/20 21:37 09/16/20 10:15 Ondansetron 4 Mg/2 Ml Vial IVP 4 mg Q6HR PRN Administration Nausea / Vomiting Pantoprazole Sodium 40 mg 09/16/20 09:18 09/19/20 06:47 Pantoprazole 40 Mg Tablet PO 40 mg QDAC ANDREIA Administration Saccharomyces Boulardii 250 mg 09/15/20 17:00 09/18/20 16:14 Saccharomyces Boulardii 250 Mg Capsule PO 250 mg BIDWM ANDREIA Administration Sodium Chloride 10 ml 09/14/20 21:37 09/15/20 12:49 Sodium Chloride Flush 0.9% 10 Ml Syringe IVP 10 ml PRN PRN Administration NEEDED PER PROVIDER ORDERS Sodium Chloride 10 ml 09/15/20 01:00 09/18/20 23:59 Sodium Chloride Flush 0.9% 10 Ml Syringe IVP 10 ml 0100,0900,1700 ANDREIA Administration Throat Lozenges 1 lozenge 09/15/20 01:19 09/16/20 00:27 Benzocaine/Menthol Lozenge MM 1 lozenge Q2HR PRN Administration Throat pain Zolpidem Tartrate 5 mg 09/15/20 20:04 09/18/20 23:57 Zolpidem 5 Mg Tablet PO 5 mg QPM PRN Administration Insomnia - Lab Result Fish Bone Diagrams: 09/19/20 06:27 09/19/20 06:27 Subjective - Subjective Patient Reports: Other (She was resting comfortably in bed at time of visit. She was about to have breakfast. She denied any complaints.) Objective Vital Signs: Vital Signs - 24 hr 09/18/20 09/18/20 09/18/20 11:44 16:00 20:00 Temperature 37.0 C 36.6 C 36.3 C L Heart Rate [ 70 85 72 Brachial] Respiratory 16 18 14 Rate Blood Pressure 114/67 129/83 H 122/70 [Right Brachial artery] O2 Saturation 93 94 93 09/19/20 00:00 Temperature 36.5 C Heart Rate [ 59 L Brachial] Respiratory 18 Rate Blood Pressure 127/67 [Right Brachial artery] O2 Saturation 93 Oxygen O2 Source Oxymizer Oxygen Flow Rate 4 I&O (Last 24 Hrs): Intake and Output Totals x24h 09/17/20 09/18/20 09/19/20 23:59 23:59 23:59 Intake Total 2352.493 1230 250 Balance 2352.493 1230 250 General: Alert, Oriented x3, No acute distress HEENT: PERRLA, EOMI Neck: Supple, No JVD Neuro: Alert, Non Focal, Oriented Times 3 Cardiovascular: Regular rate, Normal S1, Normal S2, No murmurs Respiratory: Chest non-tender, No respiratory distress, Breath sounds nml, Other (Coarse breath sounds.) Abdomen: Normal bowel sounds, Soft, No tenderness, No masses Extremities: No clubbing, No cyanosis, No edema, No tenderness/swelling Skin: No rashes, No breakdown, No significant lesion - Results Results: Laboratory Results WBC 7.9 x10^3/uL (4.8-10.8) 09/19/20 06:27 RBC 4.49 10^6/uL (4.20-5.40) 09/19/20 06:27 Hgb 13.1 g/dL (12.0-16.0) 09/19/20 06:27 Hct 38.3 % (37.0-47.0) 09/19/20 06:27 MCV 85.3 fL (81.0-99.0) 09/19/20 06:27 MCH 29.2 pg (27.0-31.0) 09/19/20 06:27 MCHC 34.2 g/dL (32.0-36.0) 09/19/20 06:27 RDW 13.2 % (12.0-15.0) 09/19/20 06:27 Plt Count 282 10^3/uL (130-450) 09/19/20 06:27 MPV 9.5 fL (7.9-10.8) 09/19/20 06:27 Neut # (Auto) 5.4 10^3/uL (1.5-6.6) 09/19/20 06:27 Lymph # (Auto) 1.9 10^3/uL (1.5-3.5) 09/19/20 06:27 [place] # (Auto) 0.5 10^3/uL (0.0-1.0) 09/19/20 06:27 Eos # (Auto) 0.0 10^3/uL (0.0-0.7) 09/19/20 06:27 Baso # (Auto) 0.0 10^3/uL (0.0-0.1) 09/19/20 06:27 Absolute Nucleated RBC 0.00 x10^3/uL 09/19/20 06:27 Band Neuts % (Manual) Not Reportable 09/19/20 06:27 Abnorm Lymph % (Manual) Not Reportable 09/19/20 06:27 Nucleated RBC % 0.0 /100WBC 09/19/20 06:27 Neutrophils # (Manual) Not Reportable 09/19/20 06:27 Lymphocytes # (Manual) Not Reportable 09/19/20 06:27 Monocytes # (Manual) Not Reportable 09/19/20 06:27 Eosinophils # (Manual) Not Reportable 09/19/20 06:27 Basophils # (Manual) Not Reportable 09/19/20 06:27 Differential Comment Y 09/19/20 06:27 WBC Morphology NORMAL APPEARANCE (NORMAL) 09/19/20 06:27 Platelet Estimate NORMAL (130-450,000) (NORMAL) 09/19/20 06:27 Platelet Morphology NORMAL APPEARANCE (NORMAL) 09/19/20 06:27 RBC Morph Micro Appear NORMAL APPEARANCE (NORMAL) 09/19/20 06:27 Sodium 138 mmol/L (135-145) 09/19/20 06:27 Potassium 3.7 mmol/L (3.5-5.0) 09/19/20 06:27 Chloride 103 mmol/L (101-111) 09/19/20 06:27 Carbon Dioxide 25 mmol/L (21-32) 09/19/20 06:27 Anion Gap 10.0 (6-13) 09/19/20 06:27 BUN 17 mg/dL (6-20) 09/19/20 06:27 Creatinine 0.6 mg/dL (0.4-1.0) 09/19/20 06:27 Estimated GFR (MDRD) 113 (>89) 09/19/20 06:27 Glucose 152 mg/dL (70-100) H 09/19/20 06:27 POC Whole Bld Glucose 289 mg/dL (70 - 100) H 09/18/20 20:12 Estimat Average Glucose 174 mg/dL (70-100) H 09/15/20 05:54 Hemoglobin A1c % 7.7 % (4.27-6.07) H 09/15/20 05:54 Lactic Acid 0.8 mmol/L (0.5-2.2) 09/14/20 20:54 Calcium 9.0 mg/dL (8.5-10.3) 09/19/20 06:27 Magnesium 2.1 mg/dL (1.7-2.8) 09/19/20 06:27 Total Bilirubin 0.7 mg/dL (0.2-1.0) 09/19/20 06:27 Direct Bilirubin 0.1 mg/dL (0.1-0.5) 09/19/20 06:27 AST 33 IU/L (10-42) 09/19/20 06:27 ALT 38 IU/L (10-60) 09/19/20 06:27 Alkaline Phosphatase 43 IU/L (42-121) 09/19/20 06:27 Troponin I High Sens 4.7 ng/L (2.3-14.8) 09/16/20 09:47 C-Reactive Protein < 1.0 mg/dL (0-1.0) 09/19/20 06:27 Total Protein 7.1 g/dL (6.7-8.2) 09/19/20 06:27 Albumin 3.8 g/dL (3.2-5.5) 09/19/20 06:27 Globulin 3.3 g/dL (2.1-4.2) 09/19/20 06:27 Urine Color YELLOW 09/15/20 03:50 Urine Clarity CLEAR (CLEAR) 09/15/20 03:50 Urine pH 5.5 PH (5.0-7.5) 09/15/20 03:50 Ur Specific [place] 1.025 (1.002-1.030) 09/15/20 03:50 Urine Protein NEGATIVE mg/dL (NEGATIVE) 09/15/20 03:50 Urine Glucose (UA) 500 mg/dL (NEGATIVE) H 09/15/20 03:50 Urine Ketones >=80 mg/dL (NEGATIVE) H 09/15/20 03:50 Urine Occult Blood NEGATIVE (NEGATIVE) 09/15/20 03:50 Urine Nitrite NEGATIVE (NEGATIVE) 09/15/20 03:50 Urine Bilirubin NEGATIVE (NEGATIVE) 09/15/20 03:50 Urine Urobilinogen 0.2 (NORMAL) E.U./dL (NORMAL) 09/15/20 03:50 Ur Leukocyte Esterase NEGATIVE (NEGATIVE) 09/15/20 03:50 Ur Microscopic Review NOT INDICATED 09/15/20 03:50 Urine Culture Comments NOT INDICATED 09/15/20 03:50 Urine HCG, Qual NEGATIVE 09/15/20 03:50 Nasal Adenovirus (PCR) NOT DETECTED 09/14/20 21:50 Nasal B. parapertussis DNA (PCR) NOT DETECTED 09/14/20 21:50 Nasal Coronavir 229E PCR NOT DETECTED 09/14/20 21:50 Nasal Coronavir HKU1 PCR NOT DETECTED 09/14/20 21:50 Nasal Coronavir NL63 PCR NOT DETECTED 09/14/20 21:50 Nasal Coronavir OC43 PCR NOT DETECTED 09/14/20 21:50 Nasal Enterovir/Rhinovir PCR NOT DETECTED 09/14/20 21:50 Nasal Influenza B PCR NOT DETECTED 09/14/20 21:50 Nasal Influenza A PCR NOT DETECTED 09/14/20 21:50 Nasal Parainfluen 1 PCR NOT DETECTED 09/14/20 21:50 Nasal Parainfluen 2 PCR NOT DETECTED 09/14/20 21:50 Nasal Parainfluen 3 PCR NOT DETECTED 09/14/20 21:50 Nasal Parainfluen 4 PCR NOT DETECTED 09/14/20 21:50 Nasal RSV (PCR) NOT DETECTED 09/14/20 21:50 Nasal B.pertussis DNA PCR NOT DETECTED 09/14/20 21:50 Nasal C.pneumoniae (PCR) NOT DETECTED 09/14/20 21:50 Brian Human Metapneumo PCR NOT DETECTED 09/14/20 21:50 Nasal M.pneumoniae (PCR) NOT DETECTED 09/14/20 21:50 Nasal SARS-CoV-2 (PCR) DETECTED A 09/14/20 21:50 Stl C. diff Tox B Gene NEGATIVE (NEGATIVE) 09/17/20 05:20 Sepsis Event Note (H) - Evaluation Current Stage of Sepsis: Sepsis Possible source of Sepsis: positive: Pulmonary - Sepsis Criteria Sepsis Criteria: Recorded Temperature greater than 38.3C or Less than 36C, Recorded Heart Rate greater than 90 bpm, Recorded Respiratory Rate greater than 20, Respiratory: Increasing oxygen requirements, WBC count greater than 12,000 or less than 4000 ABX Reporting Has patient been on IV antibiotics over the past 48 hours?: Yes
[2020-09-19] MEDS: dexAMETHasone 4 MG TABLET PO SCH (09:05)
[2020-09-19] MEDS: REMDESIVIR 100MG VIAL 100 MG in SODIUM CHLORIDE 0.9% 100ML 100 ML IV SCH (09:05)
[2020-09-19] MEDS: SACCHAROMYCES BOULARDII 250 MG CAPSULE PO SCH ×2 (09:05→16:39)
[2020-09-19] MEDS: INSULIN GLARGINE 300 UNIT/3 ML PEN SUBQ SCH ×2 (09:37→21:00)
[2020-09-19] MEDS: INSULIN ASPART 300 UNIT/3 ML PEN SUBQ SCH ×8 (09:38→20:58)
[2020-09-19] MEDS: SODIUM CHLORIDE FLUSH 0.9% 10 ML SYRINGE IVP SCH ×3 (11:45→23:46)
[2020-09-19] MEDS: ENOXAPARIN 40 MG/0.4 ML SYRINGE SUBQ SCH (11:45)
[2020-09-19] MEDS: KETOROLAC 15 MG/ML VIAL IVP PRN (20:57)
[2020-09-19] MEDS: BENZOCAINE/MENTHOL LOZENGE MM PRN (20:58)
[2020-09-19] MEDS: ZOLPIDEM 5 MG TABLET PO PRN (23:45)
[2020-09-20 04:52] LABS: BASOPHILS % (AUTO) 0.2 %; EOSINOPHILS % (AUTO) 0.4 %; HCT - HEMATOCRIT 38.8 % (37.0-47.0); LYMPHOCYTES # (AUTO) 2.3 10^3/uL (1.5-3.5); LYMPHOCYTES % (AUTO) 22.1 %; MEAN CORPUSCULAR HEMOGLOBIN 28.8 pg (27.0-31.0); MEAN CORPUSCULAR HGB CONC 33.5 g/dL (32.0-36.0); MEAN CORPUSCULAR VOLUME 85.8 fL (81.0-99.0); MEAN PLATELET VOLUME 9.7 fL (7.9-10.8); MONOCYTES # (AUTO) 0.6 10^3/uL (0.0-1.0); MONOCYTES % (AUTO) 5.9 %; NEUTROPHILS # (AUTO) 7.3 10^3/uL (1.5-6.6); NEUTROPHILS % (AUTO) 69.9 %; PLT - PLATELET COUNT 282 10^3/uL (130-450); RED BLOOD COUNT 4.52 10^6/uL (4.20-5.40); RED CELL DISTRIBUTION WIDTH 13.3 % (12.0-15.0); WHITE BLOOD COUNT 10.5 x10^3/uL (4.8-10.8)
[2020-09-20 05:07] LABS: CALCIUM 8.9 mg/dL (8.5-10.3); CREATININE 0.7 mg/dL (0.4-1.0); POTASSIUM 3.8 mmol/L (3.5-5.0)
[2020-09-20] MEDS: PANTOPRAZOLE 40 MG TABLET PO SCH (06:28)
[2020-09-20 08:16] VITALS: BP 125/75
[2020-09-20] MEDS: dexAMETHasone 4 MG TABLET PO SCH (08:53)
[2020-09-20] MEDS: ENOXAPARIN 40 MG/0.4 ML SYRINGE SUBQ SCH (08:54)
[2020-09-20] MEDS: SACCHAROMYCES BOULARDII 250 MG CAPSULE PO SCH (08:54)
[2020-09-20] MEDS: INSULIN ASPART 300 UNIT/3 ML PEN SUBQ SCH ×4 (08:55→11:35)
[2020-09-20] MEDS: INSULIN GLARGINE 300 UNIT/3 ML PEN SUBQ SCH (08:55)
[2020-09-20] MEDS: SODIUM CHLORIDE FLUSH 0.9% 10 ML SYRINGE IVP SCH (09:10)
--- NOTE | 2020-09-20 10:59 | DISCHARGE SUMMARY ---
Discharge Summary Admit Date: 09/16/20 Discharge Date: 09/20/20 Discharging Provider: Stepan Pendleton Condition at Discharge: Stable Discharge Disposition: 01 Home, Self Care - DIAGNOSES Admission Diagnoses: Acute respiratory failure with hypoxia Sepsis Pneumonia due to COVID-19 virus Syncope Discharge Diagnoses with Status of Each Condition: Acute respiratory failure with hypoxia: Acute. Resolved Sepsis: Acute. Resolved this was due to COVID-19 infection Pneumonia due to COVID-19 virus: Acute. Improving/resolved. Syncope: Acute. Resolved - HPI History of Present Illness: This is a 34-year-old female with no significant past medical history who presents today complaining of worsening shortness of breath and fever. She states she started to have fevers on 10 September and she had associated headache, malaise, chills, diaphoresis. She was tested for Covid the following day and this came back positive. She states over the past 2 days she has felt short of breath and continues to have daily fevers. She has been taking Tylenol with minimal relief. She has had a nonproductive cough and occasional chest pain with this cough. She reports a bit of nasal congestion but no sore throat. She has had loss of smell and poor appetite but has been drinking plenty of fluids. She has no abdominal pain but has had some nausea and vomiting. She also reports diarrhea that began yesterday. She has only been having 1-2 bowel movements a day but they have been liquid without formed stool. She also states that she passed out twice over the past couple days. The first time was when she was vomiting and the second time was when she was having diarrhea. She is not sure if she hit her head or not. She is not vaccinated for COVID-19. She has a remote smoking history but quit over 9 years ago. In the emergency department, she was found to be febrile with temperature of 39.3 C. Her heart rate is 108. Blood pressure was 121/78. She was tachypneic with respiratory of 30. She was saturating 95% on 4 L of oxygen via nasal cannula. Labs revealed leukopenia with a normal lactic acid. Respiratory PCR panel was positive for SARSCoV2. Chest x-ray revealed right lower lobe infiltrate. Given the above findings, medicine was consulted for admission. - HOSPITAL COURSE Hospital Course: During the course of the patient's 6-day hospital stay her oxygen requirement increased up to 6 L via nasal cannula. On the day before discharge the oxygen supply was slowly decreased and weaned off. She was able to maintain her oxygen saturation at 92% or greater even with ambulation on room air. She was treated with remdesivir, Rocephin, azithromycin and Decadron during her hospital stay. Her symptoms steadily improved. On the day of discharge she had mild rhonchi in the right upper lung but no respiratory distress. She was discharged in stable condition. She was advised to self quarantine for a total of 14 days from onset of symptoms. She may follow-up with her primary care physician as needed. - ALLERGIES Allergies/Adverse Reactions: Allergies Allergy/AdvReac Type Severity Reaction Status Date / Time No Known Drug Allergies Allergy Verified 04/17/20 15:07 - MEDICATIONS Home Medications: Ambulatory Orders Medication Instructions Recorded Confirmed No Known Home Medications 09/18/20 09/18/20 - PHYSICAL EXAM AT DISCHARGE General Appearance: positive: No acute distress, Alert Eyes Bilateral: positive: PERRL, EOMI ENT: positive: No signs of dehydration Neck: positive: No JVD, Trachea midline Respiratory: positive: Chest non-tender, No respiratory distress, Rhonchi (mild rhonchi in the right upper lung) Cardiovascular: positive: Regular rate & rhythm, No murmur Abdomen: positive: Non-tender, No organomegaly, Nml bowel sounds, No distention. negative: Guarding, Rebound Back: positive: Nml inspection Skin: positive: Color nml, No rash, Warm, Dry Extremities: positive: Non-tender, Full ROM, Nml appearance, No pedal edema Neurologic/Psychiatric: positive: Oriented x3, Mood/affect nml - LABS Result Diagrams: 09/20/20 04:10 09/20/20 04:10 - SEPSIS Current Stage of Sepsis: Sepsis Possible source of Sepsis: Pulmonary Sepsis Criteria: Recorded Temperature greater than 38.3C or Less than 36C, Recorded Heart Rate greater than 90 bpm, Recorded Respiratory Rate greater than 20, Respiratory: Increasing oxygen requirements, WBC count greater than 12,000 or less than 4000 - TIME SPENT Time Spent in Discharge (Minutes): 25
--- NOTE | 2020-09-20 11:01 | Discharge Plan ---
Discharge Plan Problem Reviewed?: Yes Disposition: 01 Home, Self Care Condition: Stable Diet: Regular Activity Restrictions: Activity as Tolerated Instruction Topics: Ondansetron injection, Enoxaparin injection, Metformin tablets, Zolpidem tablets, Saccharomyces boulardii Florastor oral dosage forms, Ketorolac injection, Ceftriaxone injection, Benzocaine Oral Lozenges, Dexamethasone injection, Log Blood Sugar, Hyperglycemia, Diabetes Type 2 Coping, Blood Sugar Check, Diabetes Type 2 Oral Meds Health Concerns: You were admitted on 09/14/20 with worsening shortness of breath. You were test ed for Covid which came back positive. You were requiring 4 L of oxygen at the time to maintain your oxygen saturation around 95%. In the course of your hospital stay you required as much as 6 L of oxygen to maintain your oxygen saturation in the 90s. You were treated with remdesivir, Decadron, azithromycin and Rocephin during your hospital stay. On the day before discharge your oxygen supply was steadily weaned down and off. You maintain your oxygen saturation greater than 92% on room air even with ambulation Result you are being discharged home. You have been advised to self quarantine for a total of 14 days from the onset of your symptoms. You expressed understanding to this plan and are in agreement. You are being discharged in stable condition. Plan of Treatment: You were admitted on 09/14/20 with worsening shortness of breath. You were tested for Covid which came back positive. You were requiring 4 L of oxygen at the time to maintain your oxygen saturation around 95%. In the course of your hospital stay you required as much as 6 L of oxygen to maintain your oxygen saturation in the 90s. You were treated with remdesivir, Decadron, azithromycin and Rocephin during your hospital stay. On the day before discharge your oxygen supply was steadily weaned down and off. You maintain your oxygen saturation greater than 92% on room air even with ambulation Result you are being discharged home. You have been advised to self quarantine for a total of 14 days from the onset of your symptoms. You expressed understanding to this plan and are in agreement. You are being discharged in stable condition. Care Goals: You were admitted on 09/14/20 with worsening shortness of breath. You were tested for Covid which came back positive. You were requiring 4 L of oxygen at the time to maintain your oxygen saturation around 95%. In the course of your hospital stay you required as much as 6 L of oxygen to maintain your oxygen saturation in the 90s. You were treated with remdesivir, Decadron, azithromycin and Rocephin during your 6 day hospital stay. On the day before discharge your oxygen supply was steadily weaned down and off. You maintain your oxygen saturation greater than 92% on room air even with ambulation As a result you are being discharged home. You have been advised to self quarantine for a total of 14 days from the onset of your symptoms. You expressed understanding to this plan and are in agreement. You are being discharged in stable condition. Assessment: You were admitted on 09/14/20 with worsening shortness of breath. You were tested for Covid which came back positive. You were requiring 4 L of oxygen at the time to maintain your oxygen saturation around 95%. In the course of your hospital stay you required as much as 6 L of oxygen to maintain your oxygen saturation in the 90s. You were treated with remdesivir, Decadron, azithromycin and Rocephin during your 6 day hospital stay. On the day before discharge your oxygen supply was steadily weaned down and off. You maintain your oxygen saturation greater than 92% on room air even with ambulation As a result you are being discharged home. You have been advised to self quarantine for a total of 14 days from the onset of your symptoms. You expressed understanding to this plan and are in agreement. You are being discharged in stable condition. No Smoking: If you smoke, Please STOP! Call for help.
[2020-09-20 12:30] LABS: CORONAVIRUS 229E-RESP PCR NOT DETECTED; CORONAVIRUS HKU1-RESP PCR NOT DETECTED; CORONAVIRUS NL63-RESP PCR NOT DETECTED; CORONAVIRUS OC43-RESP PCR NOT DETECTED
[2020-09-20 12:34] LABS: B. PARAPERTUSSIS- RESP PCR PAN NOT DETECTED; B. PERTUSSIS- RESP PCR PANEL NOT DETECTED; C. PNEUMONIAE- RESP PCR PANEL NOT DETECTED; HUMAN METAPNEUMOVIRUS NOT DETECTED; INFLUENZA A- RESP PCR PANEL NOT DETECTED; INFLUENZA B - RESP PCR PANEL NOT DETECTED; M. PNEUMONIAE- RESP PCR PANEL NOT DETECTED; PARAINFLUENZA VIRUS 1 NOT DETECTED; PARAINFLUENZA VIRUS 2 NOT DETECTED; PARAINFLUENZA VIRUS 3 NOT DETECTED; PARAINFLUENZA VIRUS 4 NOT DETECTED; RHINOVIRUS/ENTEROVIRUS NOT DETECTED; RSV- RESP PCR PANEL NOT DETECTED; SARS-CoV-2 -RESP PCR PANEL DETECTED
[2020-09-20] MEDS: ACETAMINOPHEN 325 MG TABLET PO PRN (14:15)
== END 2020-09-20 15:30 | disposition home or self-care (01) | DRG 871 ==
LOC: EDUNIT# → EDBD → ED 16:43 → MS2 21:37
PROVIDERS: ADMIT Internal Medicine; ATTEND Internal Medicine
PROC: XW033E5 Introduction of Remdesivir Anti-infective into Peripheral Vein, Percutaneous Approach, New Technology Group 5 (ICD-10-PCS; principal; 2020-09-15)
DX: A41.89 Other specified sepsis (principal); U07.1 COVID-19; J12.82 Pneumonia due to coronavirus disease 2019; J96.01 Acute respiratory failure with hypoxia; J18.9 Pneumonia, unspecified organism; E11.65 Type 2 diabetes mellitus with hyperglycemia; R55 Syncope and collapse; E86.0 Dehydration; K21.9 Gastro-esophageal reflux disease without esophagitis; R19.7 Diarrhea, unspecified; Z83.3 Family history of diabetes mellitus; Z87.891 Personal history of nicotine dependence
CPT/HCPCS: 0202U; 36415; 71045; 80048; 80076; 81003; 81025; 83036; 83605; 83735; 84484; 85025; 86140; 87040; 87493; 93005; 96372; 96374; 96375; 99284; 99285; A9270; C9399; J1650; J1815; J7120; J8540; 81001; 87086

== ENCOUNTER 2020-10-19 10:26 | Outpatient (CLI) | payer MEDICAID ==
[2020-10-19 18:24] LABS: CALCIUM 9.3 mg/dL (8.5-10.3); CREATININE 0.8 mg/dL (0.4-1.0); POTASSIUM 3.9 mmol/L (3.5-5.0)
[2020-10-19 20:42] LABS: ESTIMATED AVERAGE GLUCOSE 169 mg/dL (70-100); HEMOGLOBIN A1c% 7.5 % (4.27-6.07)
== END 2020-10-19 10:27 | disposition home or self-care (01) ==
LOC: LAB.N 10:26
PROVIDERS: ATTEND Registered Nurse
DX: F41.9 Anxiety disorder, unspecified (principal); F32.9 Major depressive disorder, single episode, unspecified; Z83.3 Family history of diabetes mellitus
CPT/HCPCS: 36415; 80048; 83036

== ENCOUNTER 2021-02-18 08:00 | Outpatient (CLI) | payer MEDICAID ==
[2021-02-18 18:43] LABS: BASOPHILS % (AUTO) 0.4 %; EOSINOPHILS % (AUTO) 0.3 %; HGB - HEMOGLOBIN 13.8 g/dL (12.0-16.0); LYMPHOCYTES # (AUTO) 1.8 10^3/uL (1.5-3.5); LYMPHOCYTES % (AUTO) 25.8 %; MEAN CORPUSCULAR HEMOGLOBIN 29.5 pg (27.0-31.0); MEAN CORPUSCULAR HGB CONC 33.7 g/dL (32.0-36.0); MEAN CORPUSCULAR VOLUME 87.6 fL (81.0-99.0); MEAN PLATELET VOLUME 10.6 fL (7.9-10.8); MONOCYTES # (AUTO) 0.4 10^3/uL (0.0-1.0); MONOCYTES % (AUTO) 5.8 %; NEUTROPHILS # (AUTO) 4.8 10^3/uL (1.5-6.6); NEUTROPHILS % (AUTO) 67.3 %; PLT - PLATELET COUNT 290 10^3/uL (130-450); RED BLOOD COUNT 4.68 10^6/uL (4.20-5.40); RED CELL DISTRIBUTION WIDTH 14.7 % (12.0-15.0); WHITE BLOOD COUNT 7.1 x10^3/uL (4.8-10.8)
[2021-02-18 18:54] LABS: ALBUMIN 4.6 g/dL (3.2-5.5); ALBUMIN/GLOBULIN RATIO 1.5 (1.0-2.2); BILIRUBIN,TOTAL 1.1 mg/dL (0.2-1.0); CALCIUM 9.4 mg/dL (8.5-10.3); CREATININE 0.8 mg/dL (0.4-1.0); CREATININE,URINE 242.6 mg/dL; MICROALBUM/CREATININE RATIO,UR 10.3 ug/mg (<30.0); MICROALBUMIN,URINE 2.5 mg/dL (0-300.0); POTASSIUM 4.1 mmol/L (3.5-5.0); TOTAL PROTEIN 7.6 g/dL (6.7-8.2)
[2021-02-18 19:01] LABS: THYROID STIMULATING HORMONE 1.72 uIU/mL (0.34-5.60)
[2021-02-18 20:38] LABS: ESTIMATED AVERAGE GLUCOSE 117 mg/dL (70-100); HEMOGLOBIN A1c% 5.7 % (4.27-6.07)
[2021-02-19 10:18] LABS: HEPATITIS C ANTIBODY NON-REACTIVE (NON-REACTIVE)
[2021-02-19 16:30] LABS: HIV AG/AB 4TH GEN NON-REACTIVE (NON-REACTIVE)
== END 2021-02-18 23:59 | disposition home or self-care (01) ==
LOC: LAB.WCP 08:00
PROVIDERS: ATTEND Registered Nurse
DX: Z00.00 Encounter for general adult medical examination without abnormal findings (principal); R03.0 Elevated blood-pressure reading, without diagnosis of hypertension; E11.9 Type 2 diabetes mellitus without complications; Z79.899 Other long term (current) drug therapy
CPT/HCPCS: 36415; 80053; 82043; 82570; 83036; 84443; 85025; 86803; 87389

== ENCOUNTER 2021-05-15 10:51 | Outpatient (CLI) | payer MEDICAID ==
[2021-05-15 14:24] LABS: CALCIUM 9.4 mg/dL (8.5-10.3); CREATININE 0.7 mg/dL (0.4-1.0)
[2021-05-15 14:37] LABS: ESTIMATED AVERAGE GLUCOSE 114 mg/dL (70-100); HEMOGLOBIN A1c% 5.6 % (4.27-6.07)
== END 2021-05-15 10:52 | disposition home or self-care (01) ==
LOC: LAB.N 10:51
PROVIDERS: ATTEND Nurse Practitioner
DX: E11.9 Type 2 diabetes mellitus without complications (principal)
CPT/HCPCS: 36415; 80048; 83036

== ENCOUNTER 2021-09-27 15:23 | Outpatient (CLI) | payer MEDICAID ==
[2021-09-27 19:03] LABS: ESTIMATED AVERAGE GLUCOSE 126 mg/dL (70-100)
== END 2021-09-27 15:24 | disposition home or self-care (01) ==
LOC: LAB.N 15:23
PROVIDERS: ATTEND Nurse Practitioner
DX: E11.65 Type 2 diabetes mellitus with hyperglycemia (principal)
CPT/HCPCS: 36415; 83036

== ENCOUNTER 2021-12-01 08:30 | Outpatient (CLI) | payer MEDICAID ==
--- NOTE | 2021-12-01 09:24 | MRI Report ---
PROCEDURE: Brain W/O INDICATIONS: HEADACHE TECHNIQUE: Noncontrast axial T1 spin echo, axial T2 fast spin echo, sagittal and axial FLAIR, coronal T2 fast sp in echo, axial gradient echo, axial diffusion and ADC through the brain. COMPARISON: None. FINDINGS: Image quality: Excellent. CSF Spaces: Basal cisterns are patent. No extra-axial fluid collections. Ventricles are normal in size and shape. Brain: No intracranial masses or hemorrhage. Hernandez/white matter interface is normal. Brainstem appe ars normal. Diffusion-weighted images demonstrate no acute ischemic insult. No chronic ischemic ins ults. Normal intravascular flow voids are present. Skull and face: Calvarium has normal marrow signal. Orbits appear normal. Sinuses: Sinuses and mastoids are clear. IMPRESSION: A cause of headache cannot be seen on these images. Reviewed by: Bernardo Teague MD on 12/01/2021 8:23 AM JUAN Approved by: Bernardo Teague MD on 12/01/2021 8:23 AM JUAN Station ID: [id number]
== END 2021-12-01 08:31 | disposition home or self-care (01) ==
LOC: DI 08:30
PROVIDERS: ATTEND Nurse Practitioner Family
DX: R51.9 Headache, unspecified (principal); R53.83 Other fatigue; R41.3 Other amnesia

== ENCOUNTER 2021-12-27 13:09 | Outpatient (CLI) | payer MEDICAID ==
[2021-12-27 21:46] LABS: ESTIMATED AVERAGE GLUCOSE 123 mg/dL (70-100); HEMOGLOBIN A1c% 5.9 % (4.27-6.07)
== END 2021-12-27 13:10 | disposition home or self-care (01) ==
LOC: LAB.N 13:09
PROVIDERS: ATTEND Nurse Practitioner
DX: E11.65 Type 2 diabetes mellitus with hyperglycemia (principal)
CPT/HCPCS: 36415; 83036

== ENCOUNTER 2022-04-26 09:13 | Outpatient (CLI) | payer MEDICAID ==
[2022-04-26 12:35] LABS: BASOPHILS % (AUTO) 0.4 %; EOSINOPHILS # (AUTO) 0.2 10^3/uL (0.0-0.7); EOSINOPHILS % (AUTO) 2.5 %; HCT - HEMATOCRIT 39.2 % (37.0-47.0); HGB - HEMOGLOBIN 12.4 g/dL (12.0-16.0); LYMPHOCYTES # (AUTO) 1.7 10^3/uL (1.5-3.5); LYMPHOCYTES % (AUTO) 19.5 %; MEAN CORPUSCULAR HEMOGLOBIN 25.3 pg (27.0-31.0); MEAN CORPUSCULAR HGB CONC 31.6 g/dL (32.0-36.0); MEAN CORPUSCULAR VOLUME 79.8 fL (81.0-99.0); MEAN PLATELET VOLUME 9.9 fL (7.9-10.8); MONOCYTES # (AUTO) 0.4 10^3/uL (0.0-1.0); MONOCYTES % (AUTO) 5.1 %; NEUTROPHILS # (AUTO) 6.2 10^3/uL (1.5-6.6); PLT - PLATELET COUNT 230 10^3/uL (130-450); RED BLOOD COUNT 4.91 10^6/uL (4.20-5.40); RED CELL DISTRIBUTION WIDTH 16.8 % (12.0-15.0); WHITE BLOOD COUNT 8.6 x10^3/uL (4.8-10.8)
[2022-04-26 13:15] LABS: THYROID STIMULATING HORMONE 3.36 uIU/mL (0.34-5.60)
[2022-04-26 13:36] LABS: CREATININE,URINE 219.2 mg/dL; MICROALBUM/CREATININE RATIO,UR 10.9 ug/mg (<30.0); MICROALBUMIN,URINE 2.4 mg/dL (0-300.0)
[2022-04-26 13:38] LABS: RHEUMATOID FACTOR NEGATIVE (Negative)
[2022-04-26 13:40] LABS: ESTIMATED AVERAGE GLUCOSE 137 mg/dL (70-100); HEMOGLOBIN A1c% 6.4 % (4.27-6.07)
[2022-04-26 17:50] LABS: ALBUMIN/GLOBULIN RATIO 1.2 (1.0-2.2); ALKALINE PHOSPHATASE 35 IU/L (42-121); ALT ALANINE AMINOTRANSFERASE 19 IU/L (10-60); AST ASPARTATE AMINOTRANSFERASE 22 IU/L (10-42); BILIRUBIN,TOTAL 0.5 mg/dL (0.2-1.0); BUN - BLOOD UREA NITROGEN 20 mg/dL (6-20); CALCIUM 9.8 mg/dL (8.5-10.3); CARBON DIOXIDE - CO2 25 mmol/L (21-32); CHLORIDE 103 mmol/L (101-111); CHOL/HDL RATIO 4.1 (<4.4); CHOLESTEROL 198 mg/dL; CREATININE 0.7 mg/dL (0.4-1.0); GFR - MDRD 94 (>89); GLUCOSE 115 mg/dL (70-100); HDL CHOLESTEROL 48 mg/dL; LDL CHOLESTEROL,CALCULATED 119 mg/dL; LDL/HDL RATIO 2.5 (<4.4); POTASSIUM 4.2 mmol/L (3.5-5.0); SODIUM 141 mmol/L (135-145); TOTAL PROTEIN 7.3 g/dL (6.7-8.2); TRIGLYCERIDES 155 mg/dL; VLDL CHOLESTEROL 31 mg/dL
== END 2022-04-26 09:14 | disposition home or self-care (01) ==
LOC: LAB.N 09:13
PROVIDERS: ATTEND Physician Assistant
DX: E11.65 Type 2 diabetes mellitus with hyperglycemia (principal); E78.2 Mixed hyperlipidemia; M25.50 Pain in unspecified joint; M35.3 Polymyalgia rheumatica
CPT/HCPCS: 36415; 80053; 80061; 82043; 82306; 82570; 83036; 83721; 84443; 85025; 85651; 86430

== ENCOUNTER 2022-05-19 11:13 | Outpatient (CLI) | payer MEDICAID ==
[2022-05-19 18:27] LABS: MAGNESIUM 1.9 mg/dL (1.7-2.8)
[2022-05-19 18:48] LABS: FERRITIN 12.7 ng/mL (11.0-306.8)
[2022-05-19 18:52] LABS: FOLATE 15.57 ng/mL (5.90 - >24.8)
== END 2022-05-19 11:14 | disposition home or self-care (01) ==
LOC: LAB.N 11:13
PROVIDERS: ATTEND Nurse Practitioner Family
DX: D50.9 Iron deficiency anemia, unspecified (principal); M35.3 Polymyalgia rheumatica; M25.50 Pain in unspecified joint; R41.3 Other amnesia
CPT/HCPCS: 36415; 82607; 82728; 82746; 83735; 84466; 84630

== ENCOUNTER 2022-08-01 13:00 | Outpatient (CLI) | payer MEDICAID ==
[2022-08-01 19:16] LABS: ESTIMATED AVERAGE GLUCOSE 140 mg/dL (70-100); HEMOGLOBIN A1c% 6.5 % (4.27-6.07)
== END 2022-08-01 13:01 | disposition home or self-care (01) ==
LOC: LAB.N 13:00
PROVIDERS: ATTEND Nurse Practitioner
DX: E11.9 Type 2 diabetes mellitus without complications (principal)
CPT/HCPCS: 36415; 83036

== ENCOUNTER 2022-12-29 11:02 | Outpatient (CLI) | payer MEDICAID ==
[2022-12-29 18:05] LABS: ALBUMIN 4.5 g/dL (3.2-5.5); ALBUMIN/GLOBULIN RATIO 1.7 (1.0-2.2); ALKALINE PHOSPHATASE 36 IU/L (42-121); ALT ALANINE AMINOTRANSFERASE 18 IU/L (10-60); AST ASPARTATE AMINOTRANSFERASE 15 IU/L (10-42); BILIRUBIN,TOTAL 0.3 mg/dL (0.2-1.0); BUN - BLOOD UREA NITROGEN 16 mg/dL (6-20); CALCIUM 9.6 mg/dL (8.5-10.3); CARBON DIOXIDE - CO2 29 mmol/L (21-32); CHLORIDE 104 mmol/L (101-111); CHOL/HDL RATIO 3.5 (<4.4); CHOLESTEROL 183 mg/dL; CREATININE 0.7 mg/dL (0.6-1.3); GFR - MDRD 93 (>89); GLUCOSE 122 mg/dL (74-104); HDL CHOLESTEROL 53 mg/dL; LDL CHOLESTEROL,CALCULATED 94 mg/dL; LDL/HDL RATIO 1.8 (<4.4); POTASSIUM 4.2 mmol/L (3.5-4.5); SODIUM 139 mmol/L (135-145); TOTAL PROTEIN 7.1 g/dL (6.4-8.9); TRIGLYCERIDES 179 mg/dL (48-352); VLDL CHOLESTEROL 36 mg/dL
[2022-12-29 18:16] LABS: CREATININE,URINE 115.7 mg/dL; MICROALBUM/CREATININE RATIO,UR 33.7 ug/mg (<30.0); MICROALBUMIN,URINE 3.9 mg/dL
[2022-12-29 20:29] LABS: ESTIMATED AVERAGE GLUCOSE 131 mg/dL (70-100); HEMOGLOBIN A1c% 6.2 % (4.27-6.07)
== END 2022-12-29 11:03 | disposition home or self-care (01) ==
LOC: LAB.N 11:02
PROVIDERS: ATTEND Nurse Practitioner
DX: E11.8 Type 2 diabetes mellitus with unspecified complications (principal); E78.2 Mixed hyperlipidemia
CPT/HCPCS: 36415; 80053; 80061; 82043; 82570; 83036; 83721

== ENCOUNTER 2023-11-15 08:00 | Outpatient (CLI) | payer MEDICAID ==
[2023-11-15 18:53] LABS: FECAL OCCULT BLOOD (FIT) POSITIVE (NEGATIVE)
== END 2023-11-15 23:59 | disposition home or self-care (01) ==
LOC: LAB.R 08:00
PROVIDERS: ATTEND Physician Assistant
DX: K62.5 Hemorrhage of anus and rectum (principal); R19.7 Diarrhea, unspecified
CPT/HCPCS: 82274; 83993; 87045; 87046; 87329; 87427

== ENCOUNTER 2023-11-27 12:22 | Outpatient (CLI) | payer MEDICAID ==
[2023-11-27 19:35] LABS: FERRITIN 25.4 ng/mL (11.0-306.8)
== END 2023-11-27 12:23 ==
LOC: LAB.N 12:22
PROVIDERS: ATTEND Physician Assistant
DX: K62.5 Hemorrhage of anus and rectum (principal); R19.7 Diarrhea, unspecified; R53.81 Other malaise; R53.83 Other fatigue
CPT/HCPCS: 36415; 80053; 80061; 82728; 83036; 83540; 83721; 84439; 84443; 84466; 85025; 86364

== ENCOUNTER 2023-11-27 12:26 | Outpatient (CLI) | payer MEDICAID ==
--- NOTE | 2023-11-28 09:05 | Mammography Report ---
BILATERAL DIGITAL SCREENING MAMMOGRAM 3D/2D: 11/27/2023 CLINICAL: Baseline exam. Routine screening. No prior exams were available for comparison. There are scattered areas of fibroglandular density in both breasts (category b / 25%-50% glandular t issue). No significant masses, calcifications, or other findings are seen in either breast. IMPRESSION: NEGATIVE There is no mammographic evidence of malignancy. A 1 year screening mammogram is recommended. Based on the Tyrer Cuzick model (a risk assessment model) the patient's lifetime risk is 10.3% and he r 10 year risk is 1.3%. According to the ACR, ACS, and NCCN guidelines, an annual breast MRI exam laya ng with mammogram is recommended if the patient's lifetime risk is 20% or greater. This exam was interpreted at Station ID: [id number]. NOTE: For mammograms, a report in lay terms will be sent to the patient. Approximately 15% of breast malignancies will not be visualized mammographically. In the management of a palpable breast mass, a negative mammogram must not discourage biopsy of a clinically suspicious lesion. Electronically Signed By: Jim ab/duran:11/27/2023 18:52:32 letter sent: No_Letter ACR BI-RADS Category 1: Negative 3341F PARENCHYMAL PATTERN: (A) - The breast(s) demonstrate(s) scattered fibroglandular densities. BI-RADS CATEGORY: (1) - 1 RECOMMENDATION: (ANNUAL) - Recommend routine annual screening mammography. [id number] 1 year screening LATERALITY: (B)
== END 2023-11-27 12:27 | disposition home or self-care (01) ==
LOC: DI.N 12:26
PROVIDERS: ATTEND Nurse Practitioner
DX: Z12.31 Encounter for screening mammogram for malignant neoplasm of breast (principal); R92.323 Mammographic fibroglandular density, bilateral breasts

== ENCOUNTER 2023-12-11 11:01 | Outpatient (CLI) | payer MEDICAID ==
[2023-12-11 11:46] LABS: BASOPHILS # (AUTO) 0.1 10^3/uL (0.0-0.1); BASOPHILS % (AUTO) 0.5 %; EOSINOPHILS # (AUTO) 0.2 10^3/uL (0.0-0.7); EOSINOPHILS % (AUTO) 2.4 %; HGB - HEMOGLOBIN 13.7 g/dL (12.0-16.0); LYMPHOCYTES # (AUTO) 2.2 10^3/uL (1.5-3.5); LYMPHOCYTES % (AUTO) 23.4 %; MEAN CORPUSCULAR HEMOGLOBIN 29.5 pg (27.0-31.0); MEAN CORPUSCULAR HGB CONC 33.4 g/dL (32.0-36.0); MEAN CORPUSCULAR VOLUME 88.4 fL (81.0-99.0); MEAN PLATELET VOLUME 9.3 fL (7.9-10.8); MONOCYTES # (AUTO) 0.4 10^3/uL (0.0-1.0); MONOCYTES % (AUTO) 4.5 %; NEUTROPHILS # (AUTO) 6.5 10^3/uL (1.5-6.6); NEUTROPHILS % (AUTO) 68.9 %; PLT - PLATELET COUNT 295 10^3/uL (130-450); RED BLOOD COUNT 4.64 10^6/uL (4.20-5.40); RED CELL DISTRIBUTION WIDTH 14.1 % (12.0-15.0); WHITE BLOOD COUNT 9.4 x10^3/uL (4.8-10.8)
[2023-12-11 12:03] LABS: ESTIMATED AVERAGE GLUCOSE 126 mg/dL (70-100)
[2023-12-11 12:13] LABS: ALBUMIN 4.5 g/dL (3.2-5.5); ALBUMIN/GLOBULIN RATIO 1.8 (1.0-2.2); ALKALINE PHOSPHATASE 44 IU/L (42-121); ALT ALANINE AMINOTRANSFERASE 21 IU/L (10-60); AST ASPARTATE AMINOTRANSFERASE 16 IU/L (10-42); BILIRUBIN,TOTAL 0.4 mg/dL (0.2-1.0); BUN - BLOOD UREA NITROGEN 14 mg/dL (6-20); CALCIUM 9.5 mg/dL (8.5-10.3); CARBON DIOXIDE - CO2 29 mmol/L (21-32); CHLORIDE 101 mmol/L (101-111); CHOL/HDL RATIO 4.2 (<4.4); CHOLESTEROL 178 mg/dL; CREATININE 0.7 mg/dL (0.6-1.3); GFR - MDRD 93 (>89); GLUCOSE 141 mg/dL (74-104); HDL CHOLESTEROL 42 mg/dL; LDL CHOLESTEROL,CALCULATED 73 mg/dL; LDL/HDL RATIO 1.7 (<4.4); POTASSIUM 4.1 mmol/L (3.5-4.5); SODIUM 136 mmol/L (135-145); TRIGLYCERIDES 313 mg/dL; VLDL CHOLESTEROL 63 mg/dL
[2023-12-11 12:18] LABS: THYROID STIMULATING HORMONE 2.31 uIU/mL (0.34-5.60)
--- NOTE | 2023-12-11 15:53 | Ultrasound Report ---
PROCEDURE: Pelvic w/Transvaginal INDICATIONS: IRREGULAR MENSTRATION TECHNIQUE: Real-time scanning was performed of the pelvic organs, with image documentation. Additional endovagi nal scanning was necessary due to incomplete visualization of the adnexal and endometrial structures by transabdominal scanning. COMPARISON: None. FINDINGS: Uterus: Uterus is anteverted and normal in size at 8.1 x 4.8 x 4.7 cm. The myometrium is homogeneou s. The endometrium measures 4 mm in combined thickness. Ovaries: The right ovary measures 2.8 x 1.6 x 2.7 cm, with a calculated ovarian volume of 6.6 cc. T he left ovary measures 3.9 x 2.5 x 3.2 cm, with a calculated ovarian volume of 16.6 cc. The ovaries have a normal sonographic appearance. Less than 12 follicles can be seen in each ovary. No adnexal masses are seen. No cystic lesions measuring greater than 3 cm. Other: No pathologic free abdominal or pelvic fluid. IMPRESSION: No sonographic abnormality of the uterus or ovaries. Reviewed by: Beau Bourgeois MD on 12/11/2023 3:52 PM PDT Approved by: Beau Bourgeois MD on 12/11/2023 3:52 PM PDT Station ID: [id number]
== END 2023-12-11 11:02 | disposition home or self-care (01) ==
LOC: DI 11:01
PROVIDERS: ATTEND Nurse Practitioner
DX: N92.6 Irregular menstruation, unspecified (principal); E11.9 Type 2 diabetes mellitus without complications; R19.7 Diarrhea, unspecified; Z13.29 Encounter for screening for other suspected endocrine disorder
CPT/HCPCS: 36415; 80053; 80061; 83036; 83721; 84439; 84443; 85025